=== PATIENT | female | born 1935 | race Caucasian/White ===

== ENCOUNTER 2021-11-21 10:41 | Observation (INO) ==
[2021-11-21] MEDS ORDERED: SODIUM CHLORIDE 0.9% 500 ML IV SCH (11:15)
[2021-11-21 11:21] LABS: Basophils # (auto) 0.01 K/uL (0-0.2); Basophils % (auto) 0.1 %; Hematocrit (blood only) 40.9 % (34.1-44.9); Hemoglobin 13.5 g/dl (12.0-16.0); Immature Granulocytes # (auto) 0.05 K/uL (0.00-0.02); Immature Granulocytes % (auto) 0.4 %; Lymphocytes # (auto) 1.83 K/uL (1.2-3.4); Lymphocytes % (auto) 15.9 %; Mean Corpuscular Hemoglobin 28.4 pg (25.0-34.0); Mean Corpuscular Volume 86.1 fL (80.0-100.0); Mean Platelet Volume 9.1 fL (9.4-12.3); Monocytes # (auto) 0.57 K/uL (0.24-0.82); Neutrophils # (auto) 9.02 K/uL (1.4-6.5); Neutrophils % (auto) 78.6 %; Platelet Count 242 K/uL (130-400); RDW Coefficient of Variation 14.6 % (11.5-14.5); RDW Standard Deviation 45.8 fL (36.4-46.3); Red Blood Count 4.75 M/uL (3.93-5.22); White Blood Count 11.48 K/ul (4.8-10.8)
--- NOTE | 2021-11-21 11:31 | Emergency Department Note ---
Impression & Plan Weakness, Gastroenteritis, Elevated troponin ED Provider Note Provider: Sohan Phillips MD DATE OF SERVICE: 11/21/2021 CHIEF COMPLAINT: Diarrhea, weakness HISTORY OF PRESENT ILLNESS: Patient is a 86-year-old female with a history of GERD, hypertension, hypothyroidism presenting here today with family reporting over the past week she has been feeling little more fatigued. Particulate last night he developed some nausea and had episodes of vomiting yesterday as well as some episodes of nonbloody diarrhea. Denies real abdominal pain. Denies chest pain or shortness of breath. States she is feeling fatigued but not nauseous currently. Family states he seems is not quite herself today. Patient denies numbness or tingling or difficulty with speech. She reports maybe a little bit of a headache at times frontally but not severe. Did not breakfast earlier. REVIEW OF SYSTEMS: A total of 10 review of systems was obtained and negative except as stated above in the HPI. PAST MEDICAL HISTORY: As noted above MEDICATIONS: Reviewed home medication list SOCIAL HISTORY: Lives in apartment by herself, not air conditioned PHYSICAL EXAM: GENERAL: alert and oriented in no acute distress on stretcher Head: normocephalic and atraumatic EYES: No injection, discharge or icterus. PERRL NECK: Trachea midline. Supple. ENT: Mucous membranes pink and moist. Pharynx without erythema or exudate. LUNGS: Airway patent. No retractions. Breath sounds clear with good air entry bilaterally. HEART: Regular rate and rhythm. No chest wall tenderness ABDOMEN: Soft and non-tender, without guarding or rebound. SKIN: Acyanotic, warm, dry, without rashes EXTREMITIES: Without swelling, tenderness or deformity NEUROLOGICAL: No focal deficits. No aphasia. No facial droop or slurred speech. Normal strength and tone in the extremities. Sensation to gross touch normal. Ambulatory minimally unsteady. EK bpm normal sinus rhythm. No PVC or PAC. No acute ST segment elevation or depression with a QTC of 460. CONTINUOUS CARDIAC MONITORING: was ordered and showed a heart rate of 80s-90s bpm in NSR Patient's laboratory studies and imaging reviewed. Differential includes Infection, dehydration, metabolic abnormality, hypo/hyperglycemia, electrolyte disturbance, anemia, hypoxia, cardiac sources, intracerebral event, toxicologic, neurologic, as well as other pathologies. IMPRESSION/MEDICAL DECISION MAKING: Patient without significant focal neurological deficit no significant trauma reported. May be a bit lightheaded earlier but I doubt this represents acute intracranial bleed or CVA. COVID test and basic blood work sent. Note the lack of abdominal tenderness or abdominal pain currently lower suspicion at this time for acute intra-abdominal pathology. Negative COVID test here. But white blood cell count of 11.48. No anemia. Slight hyponatremia of 131. No significant renal dysfunction or evidence of hepatitis or pancreatitis here. Troponin is somewhat elevated at 53. No priors for comparison available here. Urinalysis is sent and pending. No further diarrhea here. Given little additional IV fluid. Discussed with patient, son, [id number], and daughter via phone findings. Patient evidently lives at home by her self of the family is nearby and does not have air conditioning. Family states the patient's memory over the last several months has not been so good and they have been following with her primary doctor regarding this. Discussed with him the findings and while she is on active chest pain with some troponin elevation in the social situation they wish to be observed overnight. Hospitalist contacted. No evidence of UTI. DIAGNOSIS: Diarrhea, weakness, elevated troponin DISPOSITION: Hospitalist will evaluate Patient was agreeable with this plan. Past Med/Surg History Social History Smoking Status: Never smoker Feels Safe at Home: Yes Allergies Allergies Allergy/AdvReac Type Severity Reaction Status Date / Time alendronate sodium Allergy Severe throat Verified 11/21/21 13:12 [From Fosamax] swelling sulfamethoxazole Allergy Mild Rash Verified 11/21/21 13:12 [From Bactrim] trimethoprim [From Bactrim] Allergy Mild Rash Verified 11/21/21 13:12 Home Meds Home Medications Medication Instructions Recorded Confirmed amlodipine 5 mg tablet 5 mg PO DAILY 11/21/21 11/21/21 escitalopram oxalate 10 mg tablet 10 mg PO DAILY 11/21/21 11/21/21 hydrochlorothiazide 25 mg tablet 25 mg PO DAILY 11/21/21 11/21/21 levothyroxine 300 mcg tablet 300 mcg PO DAILY 11/21/21 11/21/21 lisinopril 20 mg tablet 20 mg PO DAILY 11/21/21 11/21/21 multivitamin 1 tab PO DAILY 11/21/21 11/21/21 omeprazole 20 mg tablet,delayed 20 mg PO BID 11/21/21 11/21/21 release simvastatin 20 mg tablet 20 mg PO HS 11/21/21 11/21/21 Results & Data (ED) Vital Signs Vital Signs - 24 hr 11/21/21 10:44 11/21/21 11:02 11/21/21 11:02 Temperature 36.5 C Temperature Source Temporal Artery Scan Pulse Rate 96 H 81 Pulse Rate [Apical] 81 Pulse Rhythm Regular Pulse Strength Normal Respiratory Rate 20 21 21 Respiratory Effort / Characteristics Non-Labored Spontaneous Respiratory Depth Normal Blood Pressure 117/80 Blood Pressure [Right Arm] 145/96 H Blood Pressure Mean 92 Blood Pressure Mean [Right Arm] 112 Blood Pressure Position Sitting Pulse Oximetry 97 98 98 Oxygen Delivery Method Room Air Room Air Room Air Sepsis Recent Fever Within 48 Hours No Sepsis New/Unexplained Change in Mental Status N/A Sepsis Action Taken by Nursing No Action Required 11/21/21 13:00 Temperature Temperature Source Pulse Rate Pulse Rate [Apical] 95 H Pulse Rhythm Pulse Strength Respiratory Rate 21 Respiratory Effort / Characteristics Respiratory Depth Blood Pressure Blood Pressure [Right Arm] 161/81 H Blood Pressure Mean Blood Pressure Mean [Right Arm] 107 Blood Pressure Position Pulse Oximetry 98 Oxygen Delivery Method Room Air Sepsis Recent Fever Within 48 Hours Sepsis New/Unexplained Change in Mental Status Sepsis Action Taken by Nursing Laboratory Data Result diagrams: 11/21/21 11:13 11/21/21 11:13 Lab Results 11/21/21 11/21/21 11/21/21 Range/Units 11:13 11:13 11:13 WBC 11.48 H (4.8-10.8) K/ul RBC 4.75 (3.93-5.22) M/uL Hgb 13.5 (12.0-16.0) g/dl POC Hgb (12.0-16.0) g/dl Hct 40.9 (34.1-44.9) % POC Hct (37-47) % MCV 86.1 (80.0-100.0) fL MCH 28.4 (25.0-34.0) pg MCHC 33.0 (32.0-36.0) g/dL RDW Std Deviation 45.8 (36.4-46.3) fL RDW Coeff of Linda 14.6 H (11.5-14.5) % Plt Count 242 (130-400) K/uL MPV 9.1 L (9.4-12.3) fL Immature Gran % (Auto) 0.4 % Neut % (Auto) 78.6 % Lymph % (Auto) 15.9 % Casey % (Auto) 5.0 % Eos % (Auto) 0.0 % Baso % (Auto) 0.1 % Neut # (Auto) 9.02 H (1.4-6.5) K/uL Lymph # (Auto) 1.83 (1.2-3.4) K/uL Casey # (Auto) 0.57 (0.24-0.82) K/uL Eos # (Auto) 0.00 (0-0.50) K/uL Baso # (Auto) 0.01 (0-0.2) K/uL Immature Gran # (Auto) 0.05 H (0.00-0.02) K/uL POC Sodium (135-144) mmol/L Sodium 131 L (136-145) mmol/L POC Potassium (3.3-5.0) mmol/L Potassium 3.5 (3.5-5.1) mmol/L POC Chloride (101-112) mmol/L Chloride 97 L (98-107) mmol/L Carbon Dioxide 25 (21-32) mmol/L POC Total CO2 (24-31) mmol/L Anion Gap 9 (3-11) POC Anion Gap (16-25) mmol/L POC BUN (7-18) mg/dl BUN 13 (6-23) mg/dl Creatinine 0.78 (0.6-1.2) mg/dl POC Creatinine (0.6-1.3) mg/dl Est Cr Clr Drug Dosing 53.2 ml/min Est GFR ( Amer) 80.9 ml/min Est GFR (Non-Af Amer) 69.8 ml/min BUN/Creatinine Ratio 16.7 (10-20) Glucose 97 (70-99(Fasting)) mg/dl POC Glucose (other) (70-99) mg/dl Calcium 9.5 (8.5-10.1) mg/dl POC Ioniz Calcium Albert (1.12-1.32) mmol/l Magnesium 1.8 (1.7-2.4) mg/dl Total Bilirubin 0.9 (0.2-1.0) mg/dl AST 17 (13-39) U/L ALT 12 (7-52) U/L Alkaline Phosphatase 82 (34-104) U/L Troponin I High Sens 53.7 H* (0-14) pg/ml Total Protein 7.7 (6.0-8.3) gm/dl Albumin 4.3 (3.4-5.0) gm/dl Globulin 3.4 (2.5-4.0) gm/dl Albumin/Globulin Ratio 1.3 (0.9-2) Lipase 11 (11-82) U/L Urine Color Urine Appearance (Clear) Urine pH (4.5-7.5) Ur Specific [place] (1.000-1.030) Urine Protein (Negative) Urine Glucose (UA) (Negative) Urine Ketones (Negative) Urine Blood (Negative) Urine Nitrite (Negative) Urine Bilirubin (Negative) Urine Urobilinogen (Negative) Ur Leukocyte Esterase (Negative) SARS-CoV-2, RNA, NAAT (NEGATIVE) 11/21/21 11/21/21 11/21/21 Range/Units 11:17 12:00 12:44 WBC (4.8-10.8) K/ul RBC (3.93-5.22) M/uL Hgb (12.0-16.0) g/dl POC Hgb 13.6 (12.0-16.0) g/dl Hct (34.1-44.9) % POC Hct 40 (37-47) % MCV (80.0-100.0) fL MCH (25.0-34.0) pg MCHC (32.0-36.0) g/dL RDW Std Deviation (36.4-46.3) fL RDW Coeff of Linda (11.5-14.5) % Plt Count (130-400) K/uL MPV (9.4-12.3) fL Immature Gran % (Auto) % Neut % (Auto) % Lymph % (Auto) % Casey % (Auto) % Eos % (Auto) % Baso % (Auto) % Neut # (Auto) (1.4-6.5) K/uL Lymph # (Auto) (1.2-3.4) K/uL Casey # (Auto) (0.24-0.82) K/uL Eos # (Auto) (0-0.50) K/uL Baso # (Auto) (0-0.2) K/uL Immature Gran # (Auto) (0.00-0.02) K/uL POC Sodium 139 (135-144) mmol/L Sodium (136-145) mmol/L POC Potassium 3.6 (3.3-5.0) mmol/L Potassium (3.5-5.1) mmol/L POC Chloride 104 (101-112) mmol/L Chloride (98-107) mmol/L Carbon Dioxide (21-32) mmol/L POC Total CO2 26 (24-31) mmol/L Anion Gap (3-11) POC Anion Gap 14.0 L (16-25) mmol/L POC BUN 35 H (7-18) mg/dl BUN (6-23) mg/dl Creatinine (0.6-1.2) mg/dl POC Creatinine 1.5 H (0.6-1.3) mg/dl Est Cr Clr Drug Dosing ml/min Est GFR ( Amer) ml/min Est GFR (Non-Af Amer) ml/min BUN/Creatinine Ratio (10-20) Glucose (70-99(Fasting)) mg/dl POC Glucose (other) 162 H (70-99) mg/dl Calcium (8.5-10.1) mg/dl POC Ioniz Calcium Albert 1.15 (1.12-1.32) mmol/l Magnesium (1.7-2.4) mg/dl Total Bilirubin (0.2-1.0) mg/dl AST (13-39) U/L ALT (7-52) U/L Alkaline Phosphatase (34-104) U/L Troponin I High Sens (0-14) pg/ml Total Protein (6.0-8.3) gm/dl Albumin (3.4-5.0) gm/dl Globulin (2.5-4.0) gm/dl Albumin/Globulin Ratio (0.9-2) Lipase (11-82) U/L Urine Color Yellow Urine Appearance Clear (Clear) Urine pH 7.0 (4.5-7.5) Ur Specific [place] 1.001 (1.000-1.030) Urine Protein Negative (Negative) Urine Glucose (UA) Negative (Negative) Urine Ketones Negative (Negative) Urine Blood Negative (Negative) Urine Nitrite Negative (Negative) Urine Bilirubin Negative (Negative) Urine Urobilinogen Negative (Negative) Ur Leukocyte Esterase Negative (Negative) SARS-CoV-2, RNA, NAAT NEGATIVE (NEGATIVE) Administered Medications Discontinued Medications Acetaminophen (Acetaminophen 325 Mg Tab) 650 mg PO NOW STA Stop: 11/21/21 13:00 Last Admin: 11/21/21 13:09 Dose: 650 mg Documented By: TALYA Sodium Chloride (Nss) 500 mls @ 999 mls/hr IV .Q31M ASIYA Stop: 11/21/21 11:45 Last Infusion: 11/21/21 13:47 Dose: 0 mls/hr Documented By: Admin: 11/21/21 11:13 Dose: 999 mls/hr Documented By: TALYA Lactated Ringer's (Lr) 500 mls @ 999 mls/hr IV .Q31M ONE Stop: 11/21/21 13:27 Last Infusion: 11/21/21 13:47 Dose: 0 mls/hr Documented By: Admin: 11/21/21 13:08 Dose: 999 mls/hr Documented By: TALYA Imaging Data Radiologist's Impression: Chest X-Ray 11/21/21 12:06 XR chest 1V portable HISTORY: fatigue COMPARISON: None. FINDINGS: No pneumothorax. No pleural effusions. A 9 mm nodular density within the right lung apex. This could be due to the overlapping first rib. No focal lung consolidations to suggest pneumonia. No evidence for pulmonary edema. The heart is mildly enlarged. There is a tortuous thoracic aorta. Retrocardiac density favors a moderate hiatus hernia. IMPRESSION: 1. No acute process within the chest. 2. Retrocardiac density favors a moderate hiatus hernia. 3. Mild cardiomegaly. 4. Possible 9 mm nodule within the right lung apex versus the overlapping first rib. Follow-up nonemergent chest CT can be performed for confirmation. ACT 112: Positive. There are findings on this exam that require communication between the performing entity and the patient following Patient Test Result Information Act ([place] Act 112) guidelines. Electronically signed by: Gene Quesada M.D. 11/21/2021 12:24 PM Discharge Plan Visit Data Chief Complaint: Diarrhea Stated Complaint: FATIGUE, DIZZY, DIARRHEA ED Provider: Sohan Phillips Discharge Problem: Weakness, Gastroenteritis, Elevated troponin Patient Disposition: Being Evaluated by Hospitalist Prescriptions Prescriptions: No Action multivitamin [Multi-Vitamin] Tablet 1 tab PO DAILY levothyroxine 300 mcg Tablet 300 mcg PO DAILY lisinopril 20 mg Tablet 20 mg PO DAILY amlodipine 5 mg Tablet 5 mg PO DAILY simvastatin 20 mg Tablet 20 mg PO HS hydrochlorothiazide 25 mg Tablet 25 mg PO DAILY escitalopram oxalate 10 mg Tablet 10 mg PO DAILY omeprazole 20 mg Tablet,Delayed Release (Dr/Ec) 20 mg PO BID Referrals Referrals: Lakisha Cherry MD [Primary Care Provider] -
[2021-11-21 11:41] LABS: Albumin Globulin Ratio 1.3 (0.9-2); Albumin Level 4.3 gm/dl (3.4-5.0); BUN Creatinine Ratio 16.7 (10-20); Bilirubin,Total 0.9 mg/dl (0.2-1.0); Calcium 9.5 mg/dl (8.5-10.1); Creatinine Clr Calc Pharmacy 53.2 ml/min; Est GFR (African American) 80.9 ml/min; Est GFR (Non-African American) 69.8 ml/min; Globulin 3.4 gm/dl (2.5-4.0); Potassium 3.5 mmol/L (3.5-5.1); Total Protein 7.7 gm/dl (6.0-8.3)
[2021-11-21 11:49] LABS: Troponin I High Sensitivity 53.7 pg/ml (0-14)
--- NOTE | 2021-11-21 12:25 | XRay Report ---
XR chest 1V portable HISTORY: fatigue COMPARISON: None. FINDINGS: No pneumothorax. No pleural effusions. A 9 mm nodular density within the right lung apex. T his could be due to the overlapping first rib. No focal lung consolidations to suggest pneumonia. No evidence for pulmonary edema. The heart is mildly enlarged. There is a tortuous thoracic aorta. Retro cardiac density favors a moderate hiatus hernia. IMPRESSION: 1. No acute process within the chest. 2. Retrocardiac density favors a moderate hiatus hernia. 3. Mild cardiomegaly. 4. Possible 9 mm nodule within the right lung apex versus the overlapping first rib. Follow-up noneme rgent chest CT can be performed for confirmation. ACT 112: Positive. There are findings on this exam that require communication between the performing entity and the patient following Patient Test Result Information Act ([place] Act 112) guidelines. Electronically signed by: Gene Quesada M.D. 11/21/2021 12:24 PM
[2021-11-21] MEDS ORDERED: LACTATED RINGER'S 500 ML IV ONE (12:57)
[2021-11-21 12:58] LABS: Appearance Urine Clear (Clear); Bilirubin Urine Negative (Negative); Blood Urine Negative (Negative); Color Urine Yellow; Glucose Urine UA Negative (Negative); Ketones Urine Negative (Negative); Leukocyte Esterase Urine Negative (Negative); Nitrite Urine Negative (Negative); Protein Urine Negative (Negative); Specific Gravity Urine 1.001 (1.000-1.030); Urobilinogen Urine Negative (Negative)
[2021-11-21] MEDS ORDERED: ACETAMINOPHEN 325 MG TAB PO STA (12:59)
[2021-11-21] MEDS ORDERED: amLODIPine BESYLATE 5 MG TAB PO ONE (14:33)
[2021-11-21] MEDS ORDERED: lisinopril 20 MG TAB PO STA (14:33)
--- NOTE | 2021-11-21 15:19 | History & Physical Report ---
Date of Service November 21, 2021 Assessment & Plan (1) Nausea, vomiting and diarrhea: (2) Hyponatremia: (3) Elevated troponin: (4) HTN (hypertension): Plan This is an 86-year-old female who has a significant past medical history of HTN, HLD, hypothyroidism, depression, history of benign ovarian tumor who presents to ED secondary to not feeling well over the past 2 days. 86-year-old female who presents due to general ill feeling, headache, nauseousness and few episodes of vomiting and diarrhea. No sick contacts or family members. Patient does not appear to be infectious as UA negative, SARS-CoV-2 negative, afebrile. Possible gastroenteritis at play. Symptoms could also be attributed to hyponatremia as well as heat related illness . Nausea, vomiting and diarrhea Hyponatremia Elevated troponin Admit under observation to telemetry Patient denies caroline chest pain and EKG without ST changes 2-hour troponin relatively unchanged, will cycle every 6 hours x2 for completeness Obtain echocardiogram, A1c and lipid panel, doubt ACS Treat with supportive care IV fluid NS +20 M EQ KCl x1 L, reevaluate in a.m. Obtain serum osm urine sodium and urine osm stool studies for diarrhea Hold HCTZ as possible culprit to hyponatremia HTN Blood pressure elevated in ED, likely secondary to setting and did not take morning medication Will give amlodipine and lisinopril x1 now Hold HCTZ in setting of hyponatremia Monitor Abnormality on CXR 9mm nodule R lung apex vs overlapping first rib recommend non emergent CT as outpt Hypothyroidism Continue levothyroxine, TSH WNL Hyperlipidemia Continue statin Depression Mood stable, continue escitalopram DVT prophylaxis: Lovenox Dispo: Telemetry, possibly d/c tomorrow if feeling better, pt/ot evals and ischemic work up negative Full code PCP: Jo Ann Patient was seen and examined in collaboration with, Dr. Bustillos, please see addendum History of Present Illness Chief Complaint: Ill feeling x2 days. Primary Care Provider: Lakisha Cherry MD This is an 86-year-old female who has a significant past medical history of HTN, HLD, hypothyroidism, depression, history of benign ovarian tumor who presents to ED secondary to not feeling well over the past 2 days. Over the last 1 to 2 days she developed generalized nausea, lightheadedness and yesterday had a 3-4 episodes of small amount of vomiting, headache and 4-5 episodes of loose nonbloody and nonmelanotic stool. She did complain of generalized lower abdominal ache preceding bowel movement which would be resolved with a bowel movement. She lives in an apartment by herself, but family is right around the corner. They provide most of her meals. They ate similar over the last few days and no known sick contacts. She denies any recent fever, chills, sweats, presyncope, dizziness, chest pain, shortness of breath, cough, hemoptysis, URI symptoms, hematemesis, dysuria, increased urgency or frequency with urination for. Despite not feeling well she has been eating adequately. She states that she drinks approximately three 8 ounce glasses of water a day along with a coffee and juice in the morning. She states her apartment is not air- conditioned. She did eat breakfast this morning, but did not take her medications. Due to not feeling well family, who was at bedside, wanted her evaluated. Patient's daughter is an [facility] P[facility], Dr. Yan. Surgical history: Colonoscopy, EGD, bilateral oophorectomy, cataract with lens replacement Social history: Lives alone in an apartment, does not utilize assistive device for walking, non-smoker, nondrinker, Family history: Noncontributory Allergies Allergy/AdvReac Type Severity Reaction Status Date / Time alendronate sodium Allergy Severe throat Verified 11/21/21 13:12 [From Fosamax] swelling sulfamethoxazole Allergy Mild Rash Verified 11/21/21 13:12 [From Bactrim] trimethoprim [From Bactrim] Allergy Mild Rash Verified 11/21/21 13:12 Home Medications Medication Instructions Recorded Confirmed Type amlodipine 5 mg tablet 5 mg PO DAILY 11/21/21 11/21/21 History escitalopram oxalate 10 mg tablet 10 mg PO DAILY 11/21/21 11/21/21 History hydrochlorothiazide 25 mg tablet 25 mg PO DAILY 11/21/21 11/21/21 History levothyroxine 300 mcg tablet 300 mcg PO DAILY 11/21/21 11/21/21 History lisinopril 20 mg tablet 20 mg PO DAILY 11/21/21 11/21/21 History multivitamin 1 tab PO DAILY 11/21/21 11/21/21 History omeprazole 20 mg tablet,delayed 20 mg PO BID 11/21/21 11/21/21 History release simvastatin 20 mg tablet 20 mg PO HS 11/21/21 11/21/21 History Past Med/Surg History Medical History (Updated 11/21/21 @ 15:15 by Lucinda Jackson PA-C) Depression HLD (hyperlipidemia) HTN (hypertension) Hypothyroidism Surgical History (Updated 11/21/21 @ 15:12 by Lucinda Jackson PA-C) History of esophagogastroduodenoscopy (EGD) Hx of bilateral oophorectomy Hx of cataract extraction Hx of colonoscopy Family History (Updated 11/21/21 @ 15:12 by Lucinda Jackson PA-C) Other Family history non-contributory Social History (Updated 11/21/21 @ 15:11 by Lucinda Jackson PA-C) Smoking Status: Never smoker Second Hand Exposure: No; Do You Dip or Chew Tobacco: No; Tobacco Cessation Education Requested by Patient: No Hx Alcohol Use: No Hx Substance Use: No Preferred Language: Micronesian Communication Ability: Effective Manager R D Required: No Beliefs That Will Affect Care: None marital status: / Current Living Situation: Alone Current Living Situation Comment: Lives at home by self Feels Safe at Home: Yes Safety Concerns: Feels Safe At This Time Assistive Devices: None Review of Systems Review of Systems: All systems reviewed & are unremarkable except as noted in HPI & below Physical Exam Physical Exam: Constitutional: WD/WN, vitals as above, NAD, sitting up in bed, pleasant, conversing easily Head: Normocephalic, Atraumatic Eyes: PERRL, conjunctivae normal, anicteric sclerae ENMT: external ear and nose normal, oropharynx normal Neck: trachea midline, no thyromegaly normal visual inspection Respiratory: normal respiratory effort, lungs clear to auscultation, no wheeze, rales, rhonchi. Normal insp/exp effort, no accessory muscle use Cardiovascular: RRR, no murmur, no edema Vessels: no JVD or carotid bruit Chest: normal inspection of chest Abdomen: normal bowel sounds, soft, nontender, no hepatosplenomegaly Musculoskeletal: no cyanosis or clubbing, extremities motor strength 5/5 Skin: no rashes, +SK diffuse anterior/posterior thorax, warm and dry normal turgor Neurologic: PERRL, EOMI, accommodation nl, no face palsy, no dysarthria CN's II-XI intact bilaterally and moves all extremities Psychiatric: A+Ox3, euthymic affect Lymphatic: no cervical or axillary lymphadenopathy : deferred Results & Data Results & Data ([facility]) Vital Signs (Past 12 Hours) Vital Signs Temp Pulse Pulse Resp BP BP Pulse Ox 11/21/21 13:00 95 H 21 161/81 H 98 11/21/21 11:02 81 21 98 11/21/21 11:02 81 21 145/96 H 98 11/21/21 10:44 36.5 C 96 H 20 117/80 97 O2 Del Method 11/21/21 13:00 Room Air 11/21/21 11:02 Room Air 11/21/21 11:02 Room Air 11/21/21 10:44 Room Air Diagnostic Findings Chest X-Ray 11/21/21 12:06 XR chest 1V portable HISTORY: fatigue COMPARISON: None. FINDINGS: No pneumothorax. No pleural effusions. A 9 mm nodular density within the right lung apex. This could be due to the overlapping first rib. No focal lung consolidations to suggest pneumonia. No evidence for pulmonary edema. The heart is mildly enlarged. There is a tortuous thoracic aorta. Retrocardiac density favors a moderate hiatus hernia. IMPRESSION: 1. No acute process within the chest. 2. Retrocardiac density favors a moderate hiatus hernia. 3. Mild cardiomegaly. 4. Possible 9 mm nodule within the right lung apex versus the overlapping first rib. Follow-up nonemergent chest CT can be performed for confirmation. ACT 112: Positive. There are findings on this exam that require communication between the performing entity and the patient following Patient Test Result Information Act ([place] Act 112) guidelines. Electronically signed by: Gene Quesada M.D. 11/21/2021 12:24 PM Medications Administered Medication List Discontinued Medications Acetaminophen (Acetaminophen 325 Mg Tab) 650 mg PO NOW STA Stop: 11/21/21 13:00 Last Admin: 11/21/21 13:09 Dose: 650 mg Documented By: TALYA Amlodipine Besylate (Amlodipine Besylate 5 Mg Tab) 5 mg PO NOW ONE Stop: 11/21/21 14:34 Last Admin: 11/21/21 14:53 Dose: 5 mg Documented By: HNB Sodium Chloride (Nss) 500 mls @ 999 mls/hr IV .Q31M ASIYA Stop: 11/21/21 11:45 Last Infusion: 11/21/21 13:47 Dose: 0 mls/hr Documented By: Admin: 11/21/21 11:13 Dose: 999 mls/hr Documented By: TALYA Lactated Ringer's (Lr) 500 mls @ 999 mls/hr IV .Q31M ONE Stop: 11/21/21 13:27 Last Infusion: 11/21/21 13:47 Dose: 0 mls/hr Documented By: Admin: 11/21/21 13:08 Dose: 999 mls/hr Documented By: TALYA ECG Rate (beats per minute): 83 Rhythm: normal sinus Additional Comments: qtc 460ms COVID-19 Results Results COVID-19 Adm Lab Results: RBC 4.75 M/uL (3.93-5.22) 11/21/21 WBC 11.48 K/ul (4.8-10.8) H 11/21/21 Hgb 13.5 g/dl (12.0-16.0) 11/21/21 Hct 40.9 % (34.1-44.9) 11/21/21 Plt Count 242 K/uL (130-400) 11/21/21 Neutrophils (%) (Auto) 78.6 % 11/21/21 Lymphocytes (%) (Auto) 15.9 % 11/21/21 Monocytes # (Auto) 0.57 K/uL (0.24-0.82) 11/21/21 Eosinophils # (Auto) 0.00 K/uL (0-0.50) 11/21/21 Immature Granulocyte % (Auto) 0.4 % 11/21/21 Neutrophils # (Auto) 9.02 K/uL (1.4-6.5) H 11/21/21 Lymphocytes # (Auto) 1.83 K/uL (1.2-3.4) 11/21/21 Monocytes # (Auto) 0.57 K/uL (0.24-0.82) 11/21/21 Eosinophils # (Auto) 0.00 K/uL (0-0.50) 11/21/21 Basophils # (Auto) 0.01 K/uL (0-0.2) 11/21/21 Immature Granulocyte # (Auto) 0.05 K/uL (0.00-0.02) H 11/21 Na 131 mmol/L (136-145) L 11/21/21 K 3.5 mmol/L (3.5-5.1) 11/21/21 Cl 97 mmol/L (98-107) L 11/21/21 CO2 25 mmol/L (21-32) 11/21/21 Anion Gap 9 (3-11) 11/21/21 BUN 13 mg/dl (6-23) 11/21/21 Creatinine 0.78 mg/dl (0.6-1.2) 11/21/21 BUN/Creatinine Ratio 16.7 (10-20) 11/21/21 Glucose Level 97 mg/dl (70-99(Fasting)) 11/21/21 Ca 9.5 mg/dl (8.5-10.1) 11/21/21 Total Bilirubin 0.9 mg/dl (0.2-1.0) 11/21/21 AST/SGOT 17 U/L (13-39) 11/21/21 ALT/SGPT 12 U/L (7-52) 11/21/21 Alkaline Phosphatase 82 U/L (34-104) 11/21/21 Total Protein 7.7 gm/dl (6.0-8.3) 11/21/21 Albumin 4.3 gm/dl (3.4-5.0) 11/21/21 Globulin 3.4 gm/dl (2.5-4.0) 11/21/21 Albumin/Globulin Ratio 1.3 (0.9-2) 11/21/21 SARS-CoV-2, RNA, NAAT NEGATIVE (NEGATIVE) 11/21/21 Chest X-Ray 11/21/21 Code Status & VTE Plan Code Status FULL CODE Discussed with family at bedside VTE Prophylaxis Plan VTE Prophylaxis will be ordered: Yes Supervising Physician Co-Signing Physician Notes Attending addendum: The patient was seen and examined in emergency room She has been complaining of dizziness associated with abdominal discomfort nausea and vomiting and diarrhea since last night Denies any fever and no chills Denies any chest pain, palpitation or shortness of breath On examination Lying in bed comfortably Hemodynamically stable with blood pressure on the upper side and heart rate around 100 Chestclear to auscultate bilaterally HeartS1-S2, regular Abdomenbenign mildly tender in the lower quadrant Extremitiesnegative for any edema Admission labs, imaging studies reviewed Likely has gastroenteritis with dehydration Intravenously will be administered, electrolyte replaced and the stool will be tested for C. difficile and culture Agree with assessment and plan as outlined above by Lucinda Bustillos
[2021-11-21] MEDS ORDERED: NSS + 20MEQ KCL 20 MEQ/1,000 ML BAG IV SCH (17:07)
[2021-11-21] MEDS ORDERED: ACETAMINOPHEN 325 MG TAB PO PRN (17:07)
[2021-11-21] MEDS ORDERED: POLYETHYLENE (MIRALAX) 17 GM PACK PO PRN (17:07)
[2021-11-21] MEDS ORDERED: ONDANSETRON INJ 2 MG/ML 2 ML VIAL IV PRN (17:07)
[2021-11-21] MEDS ORDERED: ALUMINUM/MAGNESIUM SUSP 30 ML UDC PO PRN (17:07)
[2021-11-21] MEDS ORDERED: MAGNESIUM HYDROXIDE SUSP 30 ML UDC PO PRN (17:07)
[2021-11-21] MEDS: SIMVASTATIN 20 MG TAB PO SCH (21:13)
[2021-11-22 06:09] LABS: Basophils # (auto) 0.01 K/uL (0-0.2); Basophils % (auto) 0.1 %; Eosinophils # (auto) 0.01 K/uL (0-0.50); Eosinophils % (auto) 0.1 %; Hematocrit (blood only) 38.9 % (34.1-44.9); Hemoglobin 12.8 g/dl (12.0-16.0); Immature Granulocytes % (auto) 1.2 %; Lymphocytes # (auto) 1.67 K/uL (1.2-3.4); Lymphocytes % (auto) 20.4 %; Mean Corpuscular Hemoglobin 28.4 pg (25.0-34.0); Mean Corpuscular Hgb Conc 32.9 g/dL (32.0-36.0); Mean Corpuscular Volume 86.4 fL (80.0-100.0); Mean Platelet Volume 8.5 fL (9.4-12.3); Monocytes # (auto) 0.46 K/uL (0.24-0.82); Monocytes % (auto) 5.6 %; Neutrophils # (auto) 5.92 K/uL (1.4-6.5); Neutrophils % (auto) 72.6 %; Platelet Count 206 K/uL (130-400); RDW Coefficient of Variation 14.6 % (11.5-14.5); RDW Standard Deviation 45.9 fL (36.4-46.3); White Blood Count 8.17 K/ul (4.8-10.8)
[2021-11-22 06:36] LABS: Albumin Globulin Ratio 1.3 (0.9-2); Albumin Level 3.9 gm/dl (3.4-5.0); Bilirubin,Total 0.6 mg/dl (0.2-1.0); Calcium 8.9 mg/dl (8.5-10.1); Chol HDL Ratio 3.1 (0-5); Creatinine Clr Calc Pharmacy 72.8 ml/min; Est GFR (African American) 98.7 ml/min; Est GFR (Non-African American) 85.1 ml/min; Globulin 3.1 gm/dl (2.5-4.0); Magnesium 1.8 mg/dl (1.7-2.4); Potassium 3.2 mmol/L (3.5-5.1)
[2021-11-22 06:49] LABS: Estimated Average Glucose 120 mg/dl; Hemoglobin A1C 5.8 % (4.5-5.6)
[2021-11-22] MEDS: LEVOTHYROXINE SODIUM 150 MCG TABLET PO SCH (08:13)
[2021-11-22] MEDS: PANTOprazole 40 MG TAB PO SCH (08:14)
[2021-11-22] MEDS: amLODIPine BESYLATE 5 MG TAB PO SCH (08:14)
[2021-11-22] MEDS: MULTIVITAMIN TAB PO SCH (08:14)
[2021-11-22] MEDS: lisinopril 20 MG TAB PO SCH (08:14)
[2021-11-22] MEDS: ESCITALOPRAM OXALATE 10 MG TAB PO SCH (08:14)
[2021-11-22] MEDS ORDERED: POTASSIUM CHLORIDE PWD 20 MEQ PACK PO ONE (09:31)
--- NOTE | 2021-11-22 09:40 | Hospitalist Progress Note ---
Date of Service November 22, 2021 Assessment & Plan (1) Nausea, vomiting and diarrhea: (2) Hyponatremia: (3) Elevated troponin: (4) HTN (hypertension): Plan This is an 86-year-old female who has a significant past medical history of HTN, HLD, hypothyroidism, depression, history of benign ovarian tumor who presents to ED secondary to not feeling well over the past 2 days. 86-year-old female who presents due to general ill feeling, headache, nauseousness and few episodes of vomiting and diarrhea. No sick contacts or family members. UA negative, SARS-CoV-2 negative, afebrile. Possible gastroenteritis at play. Symptoms could also be attributed to hyponatremia as well as heat related illness . Nausea, vomiting and diarrhea Hyponatremia Elevated troponin Admit under observation to telemetry Patient denies caroline chest pain and EKG without ST changes Troponin slightly elevated and unchanged x4 Obtained echocardiogram Normal LV chamber size with mild concentric LVH. Normal LV systolic function, EF 60 to 65%. No segmental LV wall motion abnormalities are noted. Grade 1 diastolic dysfunction. No significant valvular pathology. A1c 5.5 lipid panel - CH 142, TG 94, LDL 77 Treat with supportive care IVF, replace K Obtain serum osm urine sodium and urine osm stool studies for diarrhea - pending Hold HCTZ as possible culprit to hyponatremia HTN Blood pressure elevated in ED, likely secondary to setting and did not take morning medication cont. amlodipine and lisinopril Hold HCTZ in setting of hyponatremia Monitor Abnormality on CXR 9mm nodule R lung apex vs overlapping first rib recommend non emergent CT as outpt Hypothyroidism Continue levothyroxine, TSH WNL Hyperlipidemia Continue statin Depression Mood stable, continue escitalopram DVT prophylaxis: Lovenox Dispo: Telemetry, possibly d/c tomorrow Full code PCP: Dr. Cherry Admission and Anticipated Discharge Date Admission Date: November 21, 2021 Subjective Patient seen in follow-up of nausea vomiting diarrhea, hyponatremia, elev. troponin Currently sitting up in a chair, in no acute distress She is able to answer questions appropriately, however previously was little confused Family at the bedside Stool sample obtained in the late afternoon Echo obtained Patient denies fevers, chills, chest pain, shortness of breath, she does have some abdominal discomfort Review of Systems Review of Systems: All systems reviewed & are unremarkable except as noted in Subjective Physical Exam Physical Exam: Constitutional: WD/WN, elderly F in NAD Head: NC/AT. Normocephalic, Atraumatic Eyes: PERRL, EOMI, conjunctivae normal, anicteric sclerae ENMT: external ear and nose normal, oropharynx normal Neck: normal visual inspection Respiratory: normal respiratory effort, lungs clear to auscultation, no wheeze, rales, rhonchi. Cardiovascular: RRR, no murmur, no edema Vessels: no JVD or carotid bruit Chest: normal inspection of chest Abdomen: normal bowel sounds, soft, nontender Musculoskeletal: extremities motor strength 5/5 Skin: warm and dry Neurologic: PERRL, EOMI, no face palsy, moves all extremities Psychiatric: A+Ox3, euthymic affect Results & Data Results & Data ([facility]) Vital Signs (Past 12 Hours) Vital Signs Pulse Resp BP Pulse Ox O2 Del Method 11/22/21 08:18 97 H 17 159/84 H 93 Room Air 11/22/21 06:05 94 H 18 178/87 H 97 Room Air 11/22/21 03:08 96 H 17 159/83 H 96 Room Air 11/21/21 23:02 100 H 17 167/98 H 95 Room Air 11/21/21 22:30 99 H 16 151/103 H 95 Room Air Laboratory Results 11/22/21 11/22/21 11/22/21 Range/Units 05:53 05:53 05:53 WBC 8.17 (4.8-10.8) K/ul RBC 4.50 (3.93-5.22) M/uL Hgb 12.8 (12.0-16.0) g/dl POC Hgb (12.0-16.0) g/dl Hct 38.9 (34.1-44.9) % POC Hct (37-47) % MCV 86.4 (80.0-100.0) fL MCH 28.4 (25.0-34.0) pg MCHC 32.9 (32.0-36.0) g/dL RDW Std Deviation 45.9 (36.4-46.3) fL RDW Coeff of Linda 14.6 H (11.5-14.5) % Plt Count 206 (130-400) K/uL MPV 8.5 L (9.4-12.3) fL Immature Gran % (Auto) 1.2 % Neut % (Auto) 72.6 % Lymph % (Auto) 20.4 % Cameron % (Auto) 5.6 % Eos % (Auto) 0.1 % Baso % (Auto) 0.1 % Neut # (Auto) 5.92 (1.4-6.5) K/uL Lymph # (Auto) 1.67 (1.2-3.4) K/uL Cameron # (Auto) 0.46 (0.24-0.82) K/uL Eos # (Auto) 0.01 (0-0.50) K/uL Baso # (Auto) 0.01 (0-0.2) K/uL Immature Gran # (Auto) 0.10 H (0.00-0.02) K/uL POC Sodium (135-144) mmol/L Sodium 134 L (136-145) mmol/L POC Potassium (3.3-5.0) mmol/L Potassium 3.2 L (3.5-5.1) mmol/L POC Chloride (101-112) mmol/L Chloride 101 (98-107) mmol/L Carbon Dioxide 25 (21-32) mmol/L POC Total CO2 (24-31) mmol/L Anion Gap 8 (3-11) POC Anion Gap (16-25) mmol/L POC BUN (7-18) mg/dl BUN 8 (6-23) mg/dl Creatinine 0.57 L (0.6-1.2) mg/dl POC Creatinine (0.6-1.3) mg/dl Est Cr Clr Drug Dosing 72.8 ml/min Est GFR ( Amer) 98.7 ml/min Est GFR (Non-Af Amer) 85.1 ml/min BUN/Creatinine Ratio 14.0 (10-20) Glucose 104 H (70-99(Fasting)) mg/dl POC Glucose (other) (70-99) mg/dl Estimat Average Glucose 120 mg/dl Hemoglobin A1c 5.8 H (4.5-5.6) % Osmolality (280-300) mOsm/kg Calcium 8.9 (8.5-10.1) mg/dl POC Ioniz Calcium Albert (1.12-1.32) mmol/l Magnesium 1.8 (1.7-2.4) mg/dl Total Bilirubin 0.6 (0.2-1.0) mg/dl AST 18 (13-39) U/L ALT 13 (7-52) U/L Alkaline Phosphatase 78 (34-104) U/L Troponin I High Sens (0-14) pg/ml Total Protein 7.0 (6.0-8.3) gm/dl Albumin 3.9 (3.4-5.0) gm/dl Globulin 3.1 (2.5-4.0) gm/dl Albumin/Globulin Ratio 1.3 (0.9-2) Triglycerides 94 (0-150) mg/dl Cholesterol 142 (0-200) mg/dl LDL Cholesterol, Calc 77 mg/dl VLDL Cholesterol, Calc 19 (0-30) mg/dl HDL Cholesterol 46 mg/dl Cholesterol/HDL Ratio 3.1 (0-5) Lipase (11-82) U/L TSH (0.300-4.500) uIu/ml Urine Color Urine Appearance (Clear) Urine pH (4.5-7.5) Ur Specific [place] (1.000-1.030) Urine Protein (Negative) Urine Glucose (UA) (Negative) Urine Ketones (Negative) Urine Blood (Negative) Urine Nitrite (Negative) Urine Bilirubin (Negative) Urine Urobilinogen (Negative) Ur Leukocyte Esterase (Negative) Urine Osmolality (500-800) mOsm/kg Ur Random Sodium mmol/L SARS-CoV-2, RNA, NAAT (NEGATIVE) 11/22/21 11/21/21 11/21/21 Range/Units 00:36 18:29 13:57 WBC (4.8-10.8) K/ul RBC (3.93-5.22) M/uL Hgb (12.0-16.0) g/dl POC Hgb (12.0-16.0) g/dl Hct (34.1-44.9) % POC Hct (37-47) % MCV (80.0-100.0) fL MCH (25.0-34.0) pg MCHC (32.0-36.0) g/dL RDW Std Deviation (36.4-46.3) fL RDW Coeff of Linda (11.5-14.5) % Plt Count (130-400) K/uL MPV (9.4-12.3) fL Immature Gran % (Auto) % Neut % (Auto) % Lymph % (Auto) % Cameron % (Auto) % Eos % (Auto) % Baso % (Auto) % Neut # (Auto) (1.4-6.5) K/uL Lymph # (Auto) (1.2-3.4) K/uL Cameron # (Auto) (0.24-0.82) K/uL Eos # (Auto) (0-0.50) K/uL Baso # (Auto) (0-0.2) K/uL Immature Gran # (Auto) (0.00-0.02) K/uL POC Sodium (135-144) mmol/L Sodium (136-145) mmol/L POC Potassium (3.3-5.0) mmol/L Potassium (3.5-5.1) mmol/L POC Chloride (101-112) mmol/L Chloride (98-107) mmol/L Carbon Dioxide (21-32) mmol/L POC Total CO2 (24-31) mmol/L Anion Gap (3-11) POC Anion Gap (16-25) mmol/L POC BUN (7-18) mg/dl BUN (6-23) mg/dl Creatinine (0.6-1.2) mg/dl POC Creatinine (0.6-1.3) mg/dl Est Cr Clr Drug Dosing ml/min Est GFR ( Amer) ml/min Est GFR (Non-Af Amer) ml/min BUN/Creatinine Ratio (10-20) Glucose (70-99(Fasting)) mg/dl POC Glucose (other) (70-99) mg/dl Estimat Average Glucose mg/dl Hemoglobin A1c (4.5-5.6) % Osmolality 279 L (280-300) mOsm/kg Calcium (8.5-10.1) mg/dl POC Ioniz Calcium Albert (1.12-1.32) mmol/l Magnesium (1.7-2.4) mg/dl Total Bilirubin (0.2-1.0) mg/dl AST (13-39) U/L ALT (7-52) U/L Alkaline Phosphatase (34-104) U/L Troponin I High Sens 55.7 H* 54.0 H* (0-14) pg/ml Total Protein (6.0-8.3) gm/dl Albumin (3.4-5.0) gm/dl Globulin (2.5-4.0) gm/dl Albumin/Globulin Ratio (0.9-2) Triglycerides (0-150) mg/dl Cholesterol (0-200) mg/dl LDL Cholesterol, Calc mg/dl VLDL Cholesterol, Calc (0-30) mg/dl HDL Cholesterol mg/dl Cholesterol/HDL Ratio (0-5) Lipase (11-82) U/L TSH (0.300-4.500) uIu/ml Urine Color Urine Appearance (Clear) Urine pH (4.5-7.5) Ur Specific [place] (1.000-1.030) Urine Protein (Negative) Urine Glucose (UA) (Negative) Urine Ketones (Negative) Urine Blood (Negative) Urine Nitrite (Negative) Urine Bilirubin (Negative) Urine Urobilinogen (Negative) Ur Leukocyte Esterase (Negative) Urine Osmolality (500-800) mOsm/kg Ur Random Sodium mmol/L SARS-CoV-2, RNA, NAAT (NEGATIVE) 11/21/21 11/21/21 11/21/21 Range/Units 13:57 13:57 12:44 WBC (4.8-10.8) K/ul RBC (3.93-5.22) M/uL Hgb (12.0-16.0) g/dl POC Hgb (12.0-16.0) g/dl Hct (34.1-44.9) % POC Hct (37-47) % MCV (80.0-100.0) fL MCH (25.0-34.0) pg MCHC (32.0-36.0) g/dL RDW Std Deviation (36.4-46.3) fL RDW Coeff of Linda (11.5-14.5) % Plt Count (130-400) K/uL MPV (9.4-12.3) fL Immature Gran % (Auto) % Neut % (Auto) % Lymph % (Auto) % Cameron % (Auto) % Eos % (Auto) % Baso % (Auto) % Neut # (Auto) (1.4-6.5) K/uL Lymph # (Auto) (1.2-3.4) K/uL Cameron # (Auto) (0.24-0.82) K/uL Eos # (Auto) (0-0.50) K/uL Baso # (Auto) (0-0.2) K/uL Immature Gran # (Auto) (0.00-0.02) K/uL POC Sodium (135-144) mmol/L Sodium (136-145) mmol/L POC Potassium (3.3-5.0) mmol/L Potassium (3.5-5.1) mmol/L POC Chloride (101-112) mmol/L Chloride (98-107) mmol/L Carbon Dioxide (21-32) mmol/L POC Total CO2 (24-31) mmol/L Anion Gap (3-11) POC Anion Gap (16-25) mmol/L POC BUN (7-18) mg/dl BUN (6-23) mg/dl Creatinine (0.6-1.2) mg/dl POC Creatinine (0.6-1.3) mg/dl Est Cr Clr Drug Dosing ml/min Est GFR ( Amer) ml/min Est GFR (Non-Af Amer) ml/min BUN/Creatinine Ratio (10-20) Glucose (70-99(Fasting)) mg/dl POC Glucose (other) (70-99) mg/dl Estimat Average Glucose mg/dl Hemoglobin A1c (4.5-5.6) % Osmolality (280-300) mOsm/kg Calcium (8.5-10.1) mg/dl POC Ioniz Calcium Albert (1.12-1.32) mmol/l Magnesium (1.7-2.4) mg/dl Total Bilirubin (0.2-1.0) mg/dl AST (13-39) U/L ALT (7-52) U/L Alkaline Phosphatase (34-104) U/L Troponin I High Sens 54.2 H* (0-14) pg/ml Total Protein (6.0-8.3) gm/dl Albumin (3.4-5.0) gm/dl Globulin (2.5-4.0) gm/dl Albumin/Globulin Ratio (0.9-2) Triglycerides (0-150) mg/dl Cholesterol (0-200) mg/dl LDL Cholesterol, Calc mg/dl VLDL Cholesterol, Calc (0-30) mg/dl HDL Cholesterol mg/dl Cholesterol/HDL Ratio (0-5) Lipase (11-82) U/L TSH 2.931 (0.300-4.500) uIu/ml Urine Color Urine Appearance (Clear) Urine pH (4.5-7.5) Ur Specific [place] (1.000-1.030) Urine Protein (Negative) Urine Glucose (UA) (Negative) Urine Ketones (Negative) Urine Blood (Negative) Urine Nitrite (Negative) Urine Bilirubin (Negative) Urine Urobilinogen (Negative) Ur Leukocyte Esterase (Negative) Urine Osmolality (500-800) mOsm/kg Ur Random Sodium < 10 mmol/L SARS-CoV-2, RNA, NAAT (NEGATIVE) 11/21/21 11/21/21 11/21/21 Range/Units 12:44 12:44 12:00 WBC (4.8-10.8) K/ul RBC (3.93-5.22) M/uL Hgb (12.0-16.0) g/dl POC Hgb 13.6 (12.0-16.0) g/dl Hct (34.1-44.9) % POC Hct 40 (37-47) % MCV (80.0-100.0) fL MCH (25.0-34.0) pg MCHC (32.0-36.0) g/dL RDW Std Deviation (36.4-46.3) fL RDW Coeff of Linda (11.5-14.5) % Plt Count (130-400) K/uL MPV (9.4-12.3) fL Immature Gran % (Auto) % Neut % (Auto) % Lymph % (Auto) % Cameron % (Auto) % Eos % (Auto) % Baso % (Auto) % Neut # (Auto) (1.4-6.5) K/uL Lymph # (Auto) (1.2-3.4) K/uL Cameron # (Auto) (0.24-0.82) K/uL Eos # (Auto) (0-0.50) K/uL Baso # (Auto) (0-0.2) K/uL Immature Gran # (Auto) (0.00-0.02) K/uL POC Sodium 139 (135-144) mmol/L Sodium (136-145) mmol/L POC Potassium 3.6 (3.3-5.0) mmol/L Potassium (3.5-5.1) mmol/L POC Chloride 104 (101-112) mmol/L Chloride (98-107) mmol/L Carbon Dioxide (21-32) mmol/L POC Total CO2 26 (24-31) mmol/L Anion Gap (3-11) POC Anion Gap 14.0 L (16-25) mmol/L POC BUN 35 H (7-18) mg/dl BUN (6-23) mg/dl Creatinine (0.6-1.2) mg/dl POC Creatinine 1.5 H (0.6-1.3) mg/dl Est Cr Clr Drug Dosing ml/min Est GFR ( Amer) ml/min Est GFR (Non-Af Amer) ml/min BUN/Creatinine Ratio (10-20) Glucose (70-99(Fasting)) mg/dl POC Glucose (other) 162 H (70-99) mg/dl Estimat Average Glucose mg/dl Hemoglobin A1c (4.5-5.6) % Osmolality (280-300) mOsm/kg Calcium (8.5-10.1) mg/dl POC Ioniz Calcium Albert 1.15 (1.12-1.32) mmol/l Magnesium (1.7-2.4) mg/dl Total Bilirubin (0.2-1.0) mg/dl AST (13-39) U/L ALT (7-52) U/L Alkaline Phosphatase (34-104) U/L Troponin I High Sens (0-14) pg/ml Total Protein (6.0-8.3) gm/dl Albumin (3.4-5.0) gm/dl Globulin (2.5-4.0) gm/dl Albumin/Globulin Ratio (0.9-2) Triglycerides (0-150) mg/dl Cholesterol (0-200) mg/dl LDL Cholesterol, Calc mg/dl VLDL Cholesterol, Calc (0-30) mg/dl HDL Cholesterol mg/dl Cholesterol/HDL Ratio (0-5) Lipase (11-82) U/L TSH (0.300-4.500) uIu/ml Urine Color Yellow Urine Appearance Clear (Clear) Urine pH 7.0 (4.5-7.5) Ur Specific [place] 1.001 (1.000-1.030) Urine Protein Negative (Negative) Urine Glucose (UA) Negative (Negative) Urine Ketones Negative (Negative) Urine Blood Negative (Negative) Urine Nitrite Negative (Negative) Urine Bilirubin Negative (Negative) Urine Urobilinogen Negative (Negative) Ur Leukocyte Esterase Negative (Negative) Urine Osmolality 22 L (500-800) mOsm/kg Ur Random Sodium mmol/L SARS-CoV-2, RNA, NAAT (NEGATIVE) 11/21/21 11/21/21 11/21/21 Range/Units 11:17 11:13 11:13 WBC (4.8-10.8) K/ul RBC (3.93-5.22) M/uL Hgb (12.0-16.0) g/dl POC Hgb (12.0-16.0) g/dl Hct (34.1-44.9) % POC Hct (37-47) % MCV (80.0-100.0) fL MCH (25.0-34.0) pg MCHC (32.0-36.0) g/dL RDW Std Deviation (36.4-46.3) fL RDW Coeff of Linda (11.5-14.5) % Plt Count (130-400) K/uL MPV (9.4-12.3) fL Immature Gran % (Auto) % Neut % (Auto) % Lymph % (Auto) % Cameron % (Auto) % Eos % (Auto) % Baso % (Auto) % Neut # (Auto) (1.4-6.5) K/uL Lymph # (Auto) (1.2-3.4) K/uL Cameron # (Auto) (0.24-0.82) K/uL Eos # (Auto) (0-0.50) K/uL Baso # (Auto) (0-0.2) K/uL Immature Gran # (Auto) (0.00-0.02) K/uL POC Sodium (135-144) mmol/L Sodium 131 L (136-145) mmol/L POC Potassium (3.3-5.0) mmol/L Potassium 3.5 (3.5-5.1) mmol/L POC Chloride (101-112) mmol/L Chloride 97 L (98-107) mmol/L Carbon Dioxide 25 (21-32) mmol/L POC Total CO2 (24-31) mmol/L Anion Gap 9 (3-11) POC Anion Gap (16-25) mmol/L POC BUN (7-18) mg/dl BUN 13 (6-23) mg/dl Creatinine 0.78 (0.6-1.2) mg/dl POC Creatinine (0.6-1.3) mg/dl Est Cr Clr Drug Dosing 53.2 ml/min Est GFR ( Amer) 80.9 ml/min Est GFR (Non-Af Amer) 69.8 ml/min BUN/Creatinine Ratio 16.7 (10-20) Glucose 97 (70-99(Fasting)) mg/dl POC Glucose (other) (70-99) mg/dl Estimat Average Glucose mg/dl Hemoglobin A1c (4.5-5.6) % Osmolality (280-300) mOsm/kg Calcium 9.5 (8.5-10.1) mg/dl POC Ioniz Calcium Albert (1.12-1.32) mmol/l Magnesium 1.8 (1.7-2.4) mg/dl Total Bilirubin 0.9 (0.2-1.0) mg/dl AST 17 (13-39) U/L ALT 12 (7-52) U/L Alkaline Phosphatase 82 (34-104) U/L Troponin I High Sens 53.7 H* (0-14) pg/ml Total Protein 7.7 (6.0-8.3) gm/dl Albumin 4.3 (3.4-5.0) gm/dl Globulin 3.4 (2.5-4.0) gm/dl Albumin/Globulin Ratio 1.3 (0.9-2) Triglycerides (0-150) mg/dl Cholesterol (0-200) mg/dl LDL Cholesterol, Calc mg/dl VLDL Cholesterol, Calc (0-30) mg/dl HDL Cholesterol mg/dl Cholesterol/HDL Ratio (0-5) Lipase 11 (11-82) U/L TSH (0.300-4.500) uIu/ml Urine Color Urine Appearance (Clear) Urine pH (4.5-7.5) Ur Specific [place] (1.000-1.030) Urine Protein (Negative) Urine Glucose (UA) (Negative) Urine Ketones (Negative) Urine Blood (Negative) Urine Nitrite (Negative) Urine Bilirubin (Negative) Urine Urobilinogen (Negative) Ur Leukocyte Esterase (Negative) Urine Osmolality (500-800) mOsm/kg Ur Random Sodium mmol/L SARS-CoV-2, RNA, NAAT NEGATIVE (NEGATIVE) 11/21/21 Range/Units 11:13 WBC 11.48 H (4.8-10.8) K/ul RBC 4.75 (3.93-5.22) M/uL Hgb 13.5 (12.0-16.0) g/dl POC Hgb (12.0-16.0) g/dl Hct 40.9 (34.1-44.9) % POC Hct (37-47) % MCV 86.1 (80.0-100.0) fL MCH 28.4 (25.0-34.0) pg MCHC 33.0 (32.0-36.0) g/dL RDW Std Deviation 45.8 (36.4-46.3) fL RDW Coeff of Linda 14.6 H (11.5-14.5) % Plt Count 242 (130-400) K/uL MPV 9.1 L (9.4-12.3) fL Immature Gran % (Auto) 0.4 % Neut % (Auto) 78.6 % Lymph % (Auto) 15.9 % Cameron % (Auto) 5.0 % Eos % (Auto) 0.0 % Baso % (Auto) 0.1 % Neut # (Auto) 9.02 H (1.4-6.5) K/uL Lymph # (Auto) 1.83 (1.2-3.4) K/uL Cameron # (Auto) 0.57 (0.24-0.82) K/uL Eos # (Auto) 0.00 (0-0.50) K/uL Baso # (Auto) 0.01 (0-0.2) K/uL Immature Gran # (Auto) 0.05 H (0.00-0.02) K/uL POC Sodium (135-144) mmol/L Sodium (136-145) mmol/L POC Potassium (3.3-5.0) mmol/L Potassium (3.5-5.1) mmol/L POC Chloride (101-112) mmol/L Chloride (98-107) mmol/L Carbon Dioxide (21-32) mmol/L POC Total CO2 (24-31) mmol/L Anion Gap (3-11) POC Anion Gap (16-25) mmol/L POC BUN (7-18) mg/dl BUN (6-23) mg/dl Creatinine (0.6-1.2) mg/dl POC Creatinine (0.6-1.3) mg/dl Est Cr Clr Drug Dosing ml/min Est GFR ( Amer) ml/min Est GFR (Non-Af Amer) ml/min BUN/Creatinine Ratio (10-20) Glucose (70-99(Fasting)) mg/dl POC Glucose (other) (70-99) mg/dl Estimat Average Glucose mg/dl Hemoglobin A1c (4.5-5.6) % Osmolality (280-300) mOsm/kg Calcium (8.5-10.1) mg/dl POC Ioniz Calcium Albert (1.12-1.32) mmol/l Magnesium (1.7-2.4) mg/dl Total Bilirubin (0.2-1.0) mg/dl AST (13-39) U/L ALT (7-52) U/L Alkaline Phosphatase (34-104) U/L Troponin I High Sens (0-14) pg/ml Total Protein (6.0-8.3) gm/dl Albumin (3.4-5.0) gm/dl Globulin (2.5-4.0) gm/dl Albumin/Globulin Ratio (0.9-2) Triglycerides (0-150) mg/dl Cholesterol (0-200) mg/dl LDL Cholesterol, Calc mg/dl VLDL Cholesterol, Calc (0-30) mg/dl HDL Cholesterol mg/dl Cholesterol/HDL Ratio (0-5) Lipase (11-82) U/L TSH (0.300-4.500) uIu/ml Urine Color Urine Appearance (Clear) Urine pH (4.5-7.5) Ur Specific [place] (1.000-1.030) Urine Protein (Negative) Urine Glucose (UA) (Negative) Urine Ketones (Negative) Urine Blood (Negative) Urine Nitrite (Negative) Urine Bilirubin (Negative) Urine Urobilinogen (Negative) Ur Leukocyte Esterase (Negative) Urine Osmolality (500-800) mOsm/kg Ur Random Sodium mmol/L SARS-CoV-2, RNA, NAAT (NEGATIVE) Medications Administered Current Inpatient Medications Acetaminophen (Acetaminophen 325 Mg Tab) 650 mg PO Q4H PRN PRN Reason: Pain or Fever Stop: 12/21/21 17:06 Al Hydrox/Mg Hydrox/Simethicone (Aluminum/Magnesium Susp 30 Ml Udc) 15 ml PO Q4H PRN PRN Reason: Dyspepsia Stop: 12/21/21 17:06 Amlodipine Besylate (Amlodipine Besylate 5 Mg Tab) 5 mg PO DAILY [facility] Stop: 12/22/21 08:59 Last Admin: 11/22/21 08:14 Dose: 5 mg Escitalopram Oxalate (Escitalopram Oxalate 10 Mg Tab) 10 mg PO DAILY [facility] Stop: 12/22/21 08:59 Last Admin: 11/22/21 08:14 Dose: 10 mg Levothyroxine Sodium (Levothyroxine Sodium 150 Mcg Tablet) 300 mcg PO DAILYBB [facility] Stop: 12/22/21 08:59 Last Admin: 11/22/21 08:13 Dose: 300 mcg Lisinopril (Lisinopril 20 Mg Tab) 20 mg PO DAILY [facility] Stop: 12/22/21 08:59 Last Admin: 11/22/21 08:14 Dose: 20 mg Magnesium Hydroxide (Magnesium Hydroxide Susp 30 Ml Udc) 30 ml PO Q12H PRN PRN Reason: Constipation Stop: 12/21/21 17:06 Multivitamins (Multivitamin Tab) [facility] Stop: 12/22/21 08:59 Last Admin: 11/22/21 08:14 Dose: 1 tab Ondansetron HCl (Ondansetron Inj 2 Mg/Ml 2 Ml Vial) 4 mg IV Q6H PRN PRN Reason: Nausea Stop: 12/21/21 17:06 Pantoprazole Sodium (Pantoprazole 40 Mg Tab) 40 mg PO QAM [facility]; Protocol Stop: 12/22/21 08:59 Last Admin: 11/22/21 08:14 Dose: 40 mg Polyethylene Glycol (Polyethylene (Miralax) 17 Gm Pack) 17 gm PO DAILY PRN PRN Reason: Constipation Stop: 12/21/21 17:06 Simvastatin (Simvastatin 20 Mg Tab) 20 mg PO HS [facility] Stop: 12/21/21 20:59 Last Admin: 11/21/21 21:13 Dose: 20 mg
--- NOTE | 2021-11-22 14:04 | Electrocardiogram Report ---
Test Reason : Blood Pressure : / mmHG Vent. Rate : 083 BPM Atrial Rate : 083 BPM P-R Int : 192 ms QRS Dur : 074 ms QT Int : 392 ms P-R-T Axes : 045 -22 006 degrees QTc Int : 460 ms Poor data quality, interpretation may be adversely affected Normal sinus rhythm Inferior infarct , age undetermined Cannot rule out Anterior infarct , age undetermined Abnormal ECG No previous ECGs available Confirmed by Jayce Oseguera ([id number]) on 11/22/2021 2:04:36 PM Referred By: REFERRED SELF Confirmed By:Jayce Oseguera
[2021-11-22 18:41] LABS: Adenovirus F 40/41 PCR Not Detected (NotDetected); Astrovirus PCR Not Detected (NotDetected); Clostridium diff Toxin A/B PCR Not Detected (NotDetected); Cryptosporidium PCR Not Detected (NotDetected); Cyclospora cayetanensis PCR Not Detected (NotDetected); Entamoeba histolytica PCR Not Detected (NotDetected); Enteroaggregative E.coli(EAEC) Not Detected (NotDetected); Giardia lamblia PCR Not Detected (NotDetected); Norovirus GI/GII PCR Not Detected (NotDetected); Plesiomonas shigelloides PCR Not Detected (NotDetected); Rotavirus A PCR Not Detected (NotDetected); Salmonella PCR Not Detected (NotDetected); Sapovirus PCR Not Detected (NotDetected); Shiga-like Toxin E.coli (STEC) Not Detected (NotDetected); Shigella/Enteroinvasive E.coli Not Detected (NotDetected); Vibrio cholerae PCR Not Detected (NotDetected); Vibrio species PCR Not Detected (NotDetected); Yersinia enterocolitica PCR Not Detected (NotDetected)
[2021-11-22 18:48] LABS: Campylobacter PCR DETECTED (NotDetected)
[2021-11-22 18:49] LABS: Enteropathogenic E.coli (EPEC) DETECTED (NotDetected); Enterotoxigenic E.coli (ETEC) DETECTED (NotDetected)
[2021-11-22] MEDS ORDERED: AZITHROMYCIN 250 MG TAB PO ONE (19:18)
[2021-11-22] MEDS ORDERED: AZITHROMYCIN 250 MG TAB PO SCH (19:30)
[2021-11-22] MEDS: SIMVASTATIN 20 MG TAB PO SCH (22:21)
[2021-11-22] MEDS: AZITHROMYCIN 250 MG TAB PO SCH (22:21)
[2021-11-23] MEDS: LEVOTHYROXINE SODIUM 150 MCG TABLET PO SCH (06:20)
[2021-11-23] MEDS: PANTOprazole 40 MG TAB PO SCH (07:27)
[2021-11-23] MEDS: amLODIPine BESYLATE 5 MG TAB PO SCH (07:27)
[2021-11-23] MEDS: lisinopril 20 MG TAB PO SCH (07:27)
[2021-11-23] MEDS: ESCITALOPRAM OXALATE 10 MG TAB PO SCH (07:27)
[2021-11-23] MEDS: MULTIVITAMIN TAB PO SCH (07:28)
[2021-11-23] MEDS: AZITHROMYCIN 250 MG TAB PO SCH (08:06)
[2021-11-23 09:45] LABS: Hematocrit (blood only) 41.4 % (34.1-44.9); Hemoglobin 13.6 g/dl (12.0-16.0); Mean Corpuscular Hemoglobin 28.4 pg (25.0-34.0); Mean Corpuscular Hgb Conc 32.9 g/dL (32.0-36.0); Mean Corpuscular Volume 86.4 fL (80.0-100.0); Mean Platelet Volume 9.3 fL (9.4-12.3); Platelet Count 253 K/uL (130-400); RDW Coefficient of Variation 14.6 % (11.5-14.5); RDW Standard Deviation 46.2 fL (36.4-46.3); Red Blood Count 4.79 M/uL (3.93-5.22); White Blood Count 8.68 K/ul (4.8-10.8)
[2021-11-23 10:05] LABS: Calcium 9.9 mg/dl (8.5-10.1); Creatinine Clr Calc Pharmacy 57.1 ml/min; Est GFR (African American) 87.7 ml/min; Est GFR (Non-African American) 75.6 ml/min; Magnesium 1.6 mg/dl (1.7-2.4); Phosphorus 2.5 mg/dl (2.5-4.9); Potassium 3.4 mmol/L (3.5-5.1)
[2021-11-23] MEDS ORDERED: SODIUM CHLORIDE 0.9% 1000ML 500 ML IV ONE (10:29)
[2021-11-23] MEDS ORDERED: MAGNESIUM SULFATE / D5W 1 GM/100 ML BAG IV ONE (10:30)
--- NOTE | 2021-11-23 10:31 | Hospitalist Progress Note ---
Date of Service November 23, 2021 Assessment & Plan (1) Nausea, vomiting and diarrhea: (2) Hyponatremia: (3) Elevated troponin: (4) HTN (hypertension): Plan This is an 86-year-old female who has a significant past medical history of HTN, HLD, hypothyroidism, depression, history of benign ovarian tumor who presents to ED secondary to not feeling well over the past 2 days. 86-year-old female who presents due to general ill feeling, headache, nauseousness and few episodes of vomiting and diarrhea. No sick contacts or family members. UA negative, SARS-CoV-2 negative, afebrile. Possible gastroenteritis at play. Symptoms could also be attributed to hyponatremia as well as heat related illness . Nausea, vomiting and diarrhea Hyponatremia Elevated troponin Admit under observation to telemetry Patient denies caroline chest pain and EKG without ST changes Troponin slightly elevated and unchanged x4 Obtained echocardiogram Normal LV chamber size with mild concentric LVH. Normal LV systolic function, EF 60 to 65%. No segmental LV wall motion abnormalities are noted. Grade 1 diastolic dysfunction. No significant valvular pathology. A1c 5.5 lipid panel - CH 142, TG 94, LDL 77 Treat with supportive care IVF, replace K Obtain serum osm urine sodium and urine osm Hold HCTZ as possible culprit to hyponatremia Stool studies (PCR) for diarrhea obtained - positive for C. jejuni, Enterotoxigenic E. coli, EPEC Started azithromycin 500 mg last night, will continue for total of 3 days HTN Blood pressure elevated in ED, likely secondary to setting and did not take morning medication cont. amlodipine and lisinopril Hold HCTZ in setting of hyponatremia Monitor Abnormality on CXR 9mm nodule R lung apex vs overlapping first rib recommend non emergent CT as outpt Hypothyroidism Continue levothyroxine, TSH WNL Hyperlipidemia Continue statin Depression Mood stable, continue escitalopram DVT prophylaxis: Lovenox Dispo:Plan to [place] home Full code PCP: Dr. Cherry Admission and Anticipated Discharge Date Admission Date: November 22, 2021 Subjective Patient seen in follow-up of nausea vomiting diarrhea, hyponatremia, elev. troponin Currently laying in bed, in no acute distress She is able to answer questions appropriately, however previously was little confused Patient denies fevers, chills, chest pain, shortness of breath She only has minimal abdominal discomfort. Had 1 BM this morning, 2 overnight. Says she is able to walk to the bathroom without any dizziness or lightheadedness Discussed w/ pt's daughter Review of Systems Review of Systems: All systems reviewed & are unremarkable except as noted in Subjective Physical Exam Physical Exam: Constitutional: WD/WN, elderly F in NAD Head: NC/AT. Normocephalic, Atraumatic Eyes: PERRL, EOMI, conjunctivae normal, anicteric sclerae ENMT: external ear and nose normal, oropharynx normal Neck: normal visual inspection Respiratory: normal respiratory effort, lungs clear to auscultation, no wheeze, rales, rhonchi. Cardiovascular: RRR, no murmur, no edema Vessels: no JVD or carotid bruit Chest: normal inspection of chest Abdomen: normal bowel sounds, soft, nontender Musculoskeletal: extremities motor strength 5/5 Skin: warm and dry Neurologic: PERRL, EOMI, no face palsy, moves all extremities Psychiatric: A+Ox3, euthymic affect Results & Data Results & Data ([facility]) Vital Signs (Past 12 Hours) Vital Signs Temp Pulse Pulse Resp BP Pulse Ox O2 Del Method 11/23/21 07:07 89 11/23/21 06:57 37.2 C 86 20 143/76 H 95 Room Air 11/22/21 23:46 36.8 C 86 20 142/68 H 96 Room Air Laboratory Results 11/23/21 11/23/21 11/22/21 Range/Units 09:15 09:15 16:40 WBC 8.68 (4.8-10.8) K/ul RBC 4.79 (3.93-5.22) M/uL Hgb 13.6 (12.0-16.0) g/dl Hct 41.4 (34.1-44.9) % MCV 86.4 (80.0-100.0) fL MCH 28.4 (25.0-34.0) pg MCHC 32.9 (32.0-36.0) g/dL RDW Std Deviation 46.2 (36.4-46.3) fL RDW Coeff of Linda 14.6 H (11.5-14.5) % Plt Count 253 (130-400) K/uL MPV 9.3 L (9.4-12.3) fL Sodium 131 L (136-145) mmol/L Potassium 3.4 L (3.5-5.1) mmol/L Chloride 98 (98-107) mmol/L Carbon Dioxide 24 (21-32) mmol/L Anion Gap 9 (3-11) BUN 8 (6-23) mg/dl Creatinine 0.73 (0.6-1.2) mg/dl Est Cr Clr Drug Dosing 57.1 ml/min Est GFR ( Amer) 87.7 ml/min Est GFR (Non-Af Amer) 75.6 ml/min BUN/Creatinine Ratio 11.0 (10-20) Glucose 87 (70-99(Fasting)) mg/dl Calcium 9.9 (8.5-10.1) mg/dl Phosphorus 2.5 (2.5-4.9) mg/dl Magnesium 1.6 L (1.7-2.4) mg/dl Stl C. cayetanensis PCR Not Detected (NotDetected) Stool Rotavirus A PCR Not Detected (NotDetected) Stl Adenov F 40/41 PCR Not Detected (NotDetected) Stool Astrovirus (PCR) Not Detected (NotDetected) Stool Campylobacter PCR DETECTED A* (NotDetected) Stl C. diff Tox A/B PCR Not Detected (NotDetected) Stool Cryptosporidium PCR Not Detected (NotDetected) Stl E.coli Shiga Tox PCR Not Detected (NotDetected) Stl Enterotoxigenic E PCR DETECTED A* (NotDetected) Stool EPEC (PCR) DETECTED A* (NotDetected) Stool EAEC (PCR) Not Detected (NotDetected) Stl E. histolytica PCR Not Detected (NotDetected) Stool Giardia Lamblia PCR Not Detected (NotDetected) Stool Salmonella PCR Not Detected (NotDetected) Stool Sapovirus (PCR) Not Detected (NotDetected) Stl P. shigelloides PCR Not Detected (NotDetected) Stl Shigella/EIEC PCR Not Detected (NotDetected) St Y.enterocolitica PCR Not Detected (NotDetected) Stool Vibrio (PCR) Not Detected (NotDetected) Stl Vibrio cholerae PCR Not Detected (NotDetected) Stl Norovirus GI/GII PCR Not Detected (NotDetected) Medications Administered Current Inpatient Medications Acetaminophen (Acetaminophen 325 Mg Tab) 650 mg PO Q4H PRN PRN Reason: Pain or Fever Stop: 12/21/21 17:06 Last Admin: 11/22/21 11:13 Dose: 650 mg Al Hydrox/Mg Hydrox/Simethicone (Aluminum/Magnesium Susp 30 Ml Udc) 15 ml PO Q4H PRN PRN Reason: Dyspepsia Stop: 12/21/21 17:06 Amlodipine Besylate (Amlodipine Besylate 5 Mg Tab) 5 mg PO DAILY ASIYA Stop: 12/22/21 08:59 Last Admin: 11/23/21 07:27 Dose: 5 mg Azithromycin (Azithromycin 250 Mg Tab) 500 mg PO QAM ON LICENSE OF [facility]; Protocol Stop: 12/02/21 19:29 Last Admin: 11/23/21 08:06 Dose: 500 mg Escitalopram Oxalate (Escitalopram Oxalate 10 Mg Tab) 10 mg PO DAILY ON LICENSE OF [facility] Stop: 12/22/21 08:59 Last Admin: 11/23/21 07:27 Dose: 10 mg Sodium Chloride (Nss 1000ml) 500 mls @ 80 mls/hr IV .Q6H15M ONE Stop: 11/23/21 16:43 Magnesium Sulfate/Dextrose (Magnesium Sulfate / D5w) 1 gm in 100 mls @ 50 mls/hr IV ONE ONE Stop: 11/23/21 12:29 Levothyroxine Sodium (Levothyroxine Sodium 150 Mcg Tablet) 300 mcg PO DAILYBB ON LICENSE OF [facility] Stop: 12/22/21 08:59 Last Admin: 11/23/21 06:20 Dose: 300 mcg Lisinopril (Lisinopril 20 Mg Tab) 20 mg PO DAILY ASIYA Stop: 12/22/21 08:59 Last Admin: 11/23/21 07:27 Dose: 20 mg Magnesium Hydroxide (Magnesium Hydroxide Susp 30 Ml Udc) 30 ml PO Q12H PRN PRN Reason: Constipation Stop: 12/21/21 17:06 Multivitamins ([facility]ivitamin Tab) [facility] Stop: 12/22/21 08:59 Last Admin: 11/23/21 07:28 Dose: 1 tab Pantoprazole Sodium (Pantoprazole 40 Mg Tab) 40 mg PO QAM ON LICENSE OF [facility]; Protocol Stop: 12/22/21 08:59 Last Admin: 11/23/21 07:27 Dose: 40 mg Polyethylene Glycol (Polyethylene (Miralax) 17 Gm Pack) 17 gm PO DAILY PRN PRN Reason: Constipation Stop: 12/21/21 17:06 Potassium Chloride (Potassium Chloride Pwd 20 Meq Pack) 40 meq PO ONE ONE Stop: 11/23/21 10:30 Simvastatin (Simvastatin 20 Mg Tab) 20 mg PO HS ASIYA Stop: 12/21/21 20:59 Last Admin: 11/22/21 22:21 Dose: 20 mg
[2021-11-23] MEDS ORDERED: POTASSIUM CHLORIDE PWD 20 MEQ PACK PO ONE (10:45)
--- NOTE | 2021-11-23 13:02 | Discharge Summary ---
Date of Service November 23, 2021 Admission HPI Per Admitting Provider This is an 86-year-old female who has a significant past medical history of HTN, HLD, hypothyroidism, depression, history of benign ovarian tumor who presents to ED secondary to not feeling well over the past 2 days. Over the last 1 to 2 days she developed generalized nausea, lightheadedness and yesterday had a 3-4 episodes of small amount of vomiting, headache and 4-5 episodes of loose nonbloody and nonmelanotic stool. She did complain of generalized lower abdominal ache preceding bowel movement which would be resolved with a bowel movement. She lives in an apartment by herself, but family is right around the corner. They provide most of her meals. They ate similar over the last few days and no known sick contacts. She denies any recent fever, chills, sweats, presyncope, dizziness, chest pain, shortness of breath, cough, hemoptysis, URI symptoms, hematemesis, dysuria, increased urgency or frequency with urination for. Despite not feeling well she has been eating adequately. She states that she drinks approximately three 8 ounce glasses of water a day along with a coffee and juice in the morning. She states her apartment is not air- conditioned. She did eat breakfast this morning, but did not take her medications. Due to not feeling well family, who was at bedside, wanted her evaluated. Patient's daughter is an [facility] PCP, Dr. Yan. Surgical history: Colonoscopy, EGD, bilateral oophorectomy, cataract with lens replacement Social history: Lives alone in an apartment, does not utilize assistive device for walking, non-smoker, nondrinker, Family history: Noncontributory Admission Exam Per Admitting Provider Constitutional: WD/WN, vitals as above, NAD, sitting up in bed, pleasant, conversing easily Head: Normocephalic, Atraumatic Eyes: PERRL, conjunctivae normal, anicteric sclerae ENMT: external ear and nose normal, oropharynx normal Neck: trachea midline, no thyromegaly normal visual inspection Respiratory: normal respiratory effort, lungs clear to auscultation, no wheeze, rales, rhonchi. Normal insp/exp effort, no accessory muscle use Cardiovascular: RRR, no murmur, no edema Vessels: no JVD or carotid bruit Chest: normal inspection of chest Abdomen: normal bowel sounds, soft, nontender, no hepatosplenomegaly Musculoskeletal: no cyanosis or clubbing, extremities motor strength 5/5 Skin: no rashes, +SK diffuse anterior/posterior thorax, warm and dry normal turgor Neurologic: PERRL, EOMI, accommodation nl, no face palsy, no dysarthria CN's II-XI intact bilaterally and moves all extremities Psychiatric: A+Ox3, euthymic affect Principal Diagnosis Diarrhea secondary to C. jejuni, E. coli Hyponatremia Discharge Exam Constitutional: WD/WN, elderly F in NAD Head: NC/AT. Normocephalic, Atraumatic Eyes: PERRL, EOMI, conjunctivae normal, anicteric sclerae ENMT: external ear and nose normal, oropharynx normal Neck: normal visual inspection Respiratory: normal respiratory effort, lungs clear to auscultation, no wheeze, rales, rhonchi. Cardiovascular: RRR, no murmur, no edema Vessels: no JVD or carotid bruit Chest: normal inspection of chest Abdomen: normal bowel sounds, soft, nontender Musculoskeletal: extremities motor strength 5/5 Skin: warm and dry Neurologic: PERRL, EOMI, no face palsy, moves all extremities Psychiatric: A+Ox3, euthymic affect Discharge Data Allergies Allergy/AdvReac Type Severity Reaction Status Date / Time alendronate sodium Allergy Severe throat Verified 11/21/21 13:12 [From Fosamax] swelling sulfamethoxazole Allergy Mild Rash Verified 11/21/21 13:12 [From Bactrim] trimethoprim [From Bactrim] Allergy Mild Rash Verified 11/21/21 13:12 Consultations 11/21/21 13:26 ED Decision to Admit Stat Hospital Course (1) Nausea, vomiting and diarrhea: (2) Hyponatremia: (3) Elevated troponin: (4) HTN (hypertension): Plan This is an 86-year-old female who has a significant past medical history of HTN, HLD, hypothyroidism, depression, history of benign ovarian tumor who presents to ED secondary to not feeling well over the past 2 days. 86-year-old female who presents due to general ill feeling, headache, nauseousness and few episodes of vomiting and diarrhea. No sick contacts or family members. UA negative, SARS-CoV-2 negative, afebrile. Possible gastroenteritis at play. Symptoms could also be attributed to hyponatremia as well as heat related illness . Nausea, vomiting and diarrhea Hyponatremia Elevated troponin Admit under observation to telemetry Patient denies caroline chest pain and EKG without ST changes Troponin slightly elevated and unchanged x4 Obtained echocardiogram Normal LV chamber size with mild concentric LVH. Normal LV systolic function, EF 60 to 65%. No segmental LV wall motion abnormalities are noted. Grade 1 diastolic dysfunction. No significant valvular pathology. A1c 5.5 lipid panel - CH 142, TG 94, LDL 77 Treat with supportive care IVF, replace K Obtain serum osm urine sodium and urine osm Hold HCTZ as possible culprit to hyponatremia Stool studies (PCR) for diarrhea obtained - positive for C. jejuni, Enterotoxigenic E. coli, EPEC Started azithromycin 500 mg last night, will continue for total of 3 days HTN Blood pressure elevated in ED, likely secondary to setting and did not take morning medication cont. amlodipine and lisinopril Hold HCTZ in setting of hyponatremia Monitor Abnormality on CXR 9mm nodule R lung apex vs overlapping first rib recommend non emergent CT as outpt Hypothyroidism Continue levothyroxine, TSH WNL Hyperlipidemia Continue statin Depression Mood stable, continue escitalopram DVT prophylaxis: Lovenox Dispo:Plan to [place] home PCP: Dr. Cherry Total Time Total Time Spent Total Time Spent (In Minutes): 40 Discharge Plan Discharge Items Patient Disposition: Home - Self-Care Reason For Visit: HYPONATREMIA, ELEVATED TROP Discharge Diagnosis: Diarrhea secondary to C. jejuni, E. coli Hyponatremia Activity: Per Instructions section Non-emergency contact: Primary Care Provider Call non-emergency contact if: you have any medication questions and your symptoms worsen Follow-up/Referrals: Lakisha Cherry MD [Primary Care Provider] - (Date & Time 11/30/2021 2:20 PM Provider Lakisha Cherry MD Department Family Medicine [facility] ) Diet: Regular and Lactose Intolerant Diet Comment: For now would avoid heavy, fatty foods and dairy Addtl Attending Provider Instructions: Follow-up with your primary care doctor, within 1 to 2 weeks. The appointment was scheduled for you for November 30. Finish antibiotic treatment, take azithromycin 500 mg tomorrow. If your symptoms do not improve in the next few days, see your primary care doctor earlier. Take potassium supplement for next few days. Make sure to stay well-hydrated. For now, do not take hydrochlorothiazide. If you can, monitor your blood pressure at home and record your numbers. Discuss them with your primary care doctor to see if your blood pressure medication needs to be adjusted. Pending Studies at Discharge: No Stand-Alone Forms: [facility], Smoking Cessation Medications and DC Order Prescriptions: New azithromycin 250 mg Tablet 500 mg PO QAM 1 Days Qty: 2 0RF potassium chloride 10 mEq Tablet,Er Particles/Crystals 10 meq PO DAILY Qty: 7 0RF Continued multivitamin [Multi-Vitamin] Tablet 1 tab PO DAILY levothyroxine 300 mcg Tablet 300 mcg PO DAILY lisinopril 20 mg Tablet 20 mg PO DAILY amlodipine 5 mg Tablet 5 mg PO DAILY simvastatin 20 mg Tablet 20 mg PO HS escitalopram oxalate 10 mg Tablet 10 mg PO DAILY omeprazole 20 mg Tablet,Delayed Release (Dr/Ec) 20 mg PO BID Discontinued hydrochlorothiazide 25 mg Tablet 25 mg PO DAILY Discharge Orders: Discharge Order (Routine); Ordered 11/23/21 Ordered By: Artem Mccoy/Other Patient Handouts: A1C Admission Data Admit Date/Time: 11/22/21 19:20 Attending Provider: Artem Acevedo Admit Provider: Carey Bustillos Primary Care Provider: Lakisha Cherry Other Providers: Lucinda Jackson ; Carey Bustillos ; [facility]
[2021-11-24] MEDS ORDERED: POTASSIUM CHLORIDE 10 MEQ TABCR PO SCH (09:00)
== END 2021-11-23 16:10 | disposition home or self-care (01) | DRG 372 ==
LOC: EDINP 10:41 → ED 10:41 → SUATTDRO 13:34 → 2N 17:10

== ENCOUNTER 2025-02-20 14:02 | Inpatient (IN) ==
--- NOTE | 2025-02-20 14:44 | Emergency Department Note ---
Impression & Plan Hypertensive emergency, Elevated troponin, Ptosis of eyelid, left, Headache ED Provider Note Name: MEGAN BYRNES Age: 89 Sex: Female Arrives Via: Ambulance Informant: Patient, EMS, Son, Daughter (Via Phone) ED Provider: Matthew Marley MD Chief Complaint: headache Impression: As per impression above Medical Decision Making: Pleasant 89-year-old female arrives for evaluation of headache ongoing since this morning. This is associated with left eyelid drooping. It also is associated with significant the elevated blood pressure. On arrival patient does not have any complaints other than a mild headache. Examination is consistent with mild left upper facial droop but she has no other neurologic deficits. With the amount of hypertensive she is having she was emergently sent for CTA head which is fortunately unremarkable for acute findings other than there is some questionable carotid artery dilatation. This will need further follow-up and thus a CTA of the head and neck was obtained. Patient's initial EKG is reassuring. Laboratory workup does not show any acute findings other than she does have an elevated troponin. I am a bit worried that this may be a hypertensive emergency. She was given gentle labetalol treatment as wishing to avoid dropping pressure too low especially if there is an underlying stroke ongoing. Patient is not having any chest pain shortness of breath. She has not had any reported syncope. In the setting of stroke versus hypertensive emergency and having an elevated troponin I do feel that starting aspirin is indicated. She does not require heparin at this time as we will await further laboratory findings and workup. Given the patient's unknown last known well and minimal findings especially given the significant difficulty with improving her blood pressure I do not feel she would be a candidate for TNKase. Triage/Nursing Notes reviewed by Me External Chart Review by me: A discharge summary from 01/14/22 was reviewed by me for past medical history Differential: Benign hypertension, hypertensive emergency, cardiovascular pathology, toxicologic, pheochromocytoma, electrolyte abnormality, renal disease, endorgan damage, as well as other pathologies. Vital Signs: reviewed and remarkable for HTN Interventions: labetalol 10mg iv x 3, zofran 4mg iv, tylenol iv Labs:ED labs Reviewed by me and remarkable for elevated trop Imaging:X ray results are stated below per my interpretation: Chest: 1 view: No infiltrate, no effusion, normal cardiac border. CT head: As per my informal interpretation no intracranial hemorrhage or mass effect appreciated. Radiologist notes dilatation of the carotid arteries and advises CTA of the head and neck. EKG:As per my interpretation. Indication hypertension. Sinus at 77 bpm with PVC noted. There is no ischemia appreciated. There is prolonged QTc of 513. Patient does have an intraventricular block noted. When compared to EKG of February 03, 2022 PVCs are new. Cardiac/Tele Monitoring: Cardiac Monitoring: An Order was placed for continuous cardiac monitoring. The monitor shows a rate of 70 with a normal sinus rhythm. Consults:Discussed with hospital service for further management. Plan: Disposition:Hospitalization. Condition: Fair History of Present Illness: 89-year-old female arrives for evaluation of headache. Patient apparently reported to nursing staff this morning that she had a headache. At some point they noticed that she might have a left facial droop as well. Patient states that she has had a headache for several days. No reported falls or injuries. No recent illnesses reported. No interventions prior to arrival. Story is a bit limited as patient does not seem to be a very good historian. Past Medical History:See Below Home Medications:See Below Allergies:bactrim, fosamax Vitals:Blood Pressure: 195/115, Pulse 78, RR 14, T 36.8C, O2 97% on RA Physical Exam: GENERAL: Patient is frail/elderly appearing and in minimal distress. HEAD: AT/NC NECK: No ttp , no stepoff RESPIRATORY: No dyspnea. Clear to auscultation and equal bilaterally. CARDIOVASCULAR: Regular rate and rhythm.No murmur appreciated. GASTROINTESTINAL: Abdomen soft, non-tender, no peritonitis. BACK: No midline tenderness, no CVA tenderness EXTREMITIES: Normal motion all extremities, no cyanosis, no edema. NEUROLOGIC: Patient is alert has dementia and quite forgetful. She has left upper facial weakness though no significantly discernible lower facial weakness. Questionable mild conjunctivitis/erythema on the left. Otherwise no focal neurologic deficits appreciated. Of note patient is not having any difficulty with swallowing or tolerating secretions. SKIN: No rash, no jaundice, no diaphoresis. PSYCH: Appropriate GCS: 15 ED Course: Times/Reassessments: Stable, headache improving Critical Care: I have personally spent 45 minutes of critical care time in the direct management of this patient. Acute hypertensive emergency requiring multiple iv antihypertensives. This was a life/limb threatening event. This 45 minutes is in excess of all separately billable procedures. Matthew Marley MD Past Med/Surg History Problem List (Updated 02/21/25 @ 08:26 by Matthew Marley MD) Headache (Acute) Ptosis of eyelid, left (Acute) Elevated troponin (Acute) Hypertensive emergency (Acute) Aneurysm Facial droop Hypokalemia Stroke-like symptoms Hypertensive urgency Dens fracture with nonunion (Acute) Hyponatremia Nausea, vomiting and diarrhea Hypothyroidism HLD (hyperlipidemia) HTN (hypertension) Weakness (Acute) Gastroenteritis (Acute) Elevated troponin (Acute) Medical History Depression Surgical History Hx of cataract extraction Hx of bilateral oophorectomy Hx of colonoscopy History of esophagogastroduodenoscopy (EGD) Family History Other Family history non-contributory Social History Smoking Status: Never smoker Second Hand Exposure: No; Do You Dip or Chew Tobacco: No; Tobacco Cessation Education Requested by Patient: No Hx Alcohol Use: No Hx Substance Use: No Preferred Language: Hebrew Communication Ability: Effective 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 Beliefs That Will Affect Care: None marital status: Single Current Living Situation: Personal Care Facility Current Living Situation Comment: Lives at home by self Other Information That Helps Us Care for You: No Feels Safe at Home: Yes Safety Concerns: Feels Safe At This Time Assistive Devices: Glasses Assistive Devices Comment: readers Allergies Allergies Allergy/AdvReac Type Severity Reaction Status Date / Time alendronate sodium Allergy Severe throat Verified 02/20/25 17:54 [From Fosamax] swelling sulfamethoxazole Allergy Mild Rash Verified 02/20/25 17:54 [From Bactrim] trimethoprim [From Bactrim] Allergy Mild Rash Verified 02/20/25 17:54 Home Meds Home Medications Medication Instructions Recorded Confirmed amlodipine 5 mg tablet 5 mg PO QAM 11/21/21 02/20/25 escitalopram oxalate 10 mg tablet 10 mg PO QAM 11/21/21 02/20/25 lisinopril 20 mg tablet 20 mg PO QAM 11/21/21 02/20/25 omeprazole 20 mg tablet,delayed 20 mg PO BID 11/21/21 02/20/25 release simvastatin 20 mg tablet 20 mg PO HS 11/21/21 02/20/25 acetaminophen 500 mg tablet 500 mg PO TID 02/20/25 02/20/25 cetirizine 5 mg tablet 5 mg PO QAM 02/20/25 02/20/25 cholecalciferol (vitamin D3) 125 125 mcg PO DAILY 02/20/25 02/20/25 mcg (5,000 unit) capsule donepezil 10 mg tablet 10 mg PO QAM 02/20/25 02/20/25 levothyroxine 200 mcg tablet 200 mcg PO DAILYBB 02/20/25 02/20/25 memantine 10 mg tablet 10 mg PO AMHS 02/20/25 02/20/25 Results & Data (ED) Vital Signs Vital Signs - 24 hr 02/20/25 14:17 02/20/25 14:30 02/20/25 15:44 Temperature 36.8 C Temperature Source Oral Pulse Rate 76 78 Pulse Rate [Right Finger] 77 Respiratory Rate 14 22 Blood Pressure 195/115 H Blood Pressure [Right Arm] 217/109 H Blood Pressure Mean 141 Blood Pressure Mean [Right Arm] 145 Pulse Oximetry 97 95 Oxygen Delivery Method Room Air Room Air Sepsis Recent Fever Within 48 Hours No Sepsis New/Unexplained Change in Mental Status N/A Sepsis Action Taken by Nursing No Action Required 02/20/25 15:46 Temperature Temperature Source Pulse Rate 77 Pulse Rate [Right Finger] Respiratory Rate Blood Pressure 217/109 H Blood Pressure [Right Arm] Blood Pressure Mean Blood Pressure Mean [Right Arm] Pulse Oximetry Oxygen Delivery Method Sepsis Recent Fever Within 48 Hours Sepsis New/Unexplained Change in Mental Status Sepsis Action Taken by Nursing Laboratory Data 02/21/25 04:28 02/21/25 04:28 Lab Results 02/20/25 Range/Units 14:20 WBC 10.33 (4.8-10.8) K/ul RBC 4.77 (4.20-5.40) M/uL Hgb 12.0 (12.0-16.0) g/dl Hct 36.7 L (37.0-47.0) % MCV 76.9 L (80.0-100.0) fL MCH 25.2 (25.0-34.0) pg MCHC 32.7 (32.0-36.0) g/dL RDW Std Deviation 48.0 H (36.4-46.3) fL RDW Coeff of Linda 17.3 H (11.5-14.5) % Plt Count 280 (130-400) K/uL MPV 9.0 L (9.4-12.4) fL Immature Gran % (Auto) 1.4 % Neut % (Auto) 69.1 % Lymph % (Auto) 16.1 % [place] % (Auto) 13.1 % Eos % (Auto) 0.2 % Baso % (Auto) 0.1 % Neut # (Auto) 7.15 H (1.40-6.50) K/uL Lymph # (Auto) 1.66 (1.20-3.40) K/uL [place] # (Auto) 1.35 H (0.11-0.59) K/uL Eos # (Auto) 0.02 (0.00-0.50) K/uL Baso # (Auto) 0.01 (0.00-0.20) K/uL Immature Gran # (Auto) 0.14 (0.01-0.20) K/uL Sodium 133 L (136-145) mmol/L Potassium 2.8 L (3.5-5.1) mmol/L Chloride 93 L (98-107) mmol/L Carbon Dioxide 29 (21-32) mmol/L Anion Gap 11 (3-11) BUN 18 (6-23) mg/dl Creatinine 0.68 (0.6-1.2) mg/dl Est Cr Clr Drug Dosing 56.4 ml/min eGFR 84.24 BUN/Creatinine Ratio 26.5 H (10-20) Glucose 136 H (70-99(Fasting)) mg/dl Calcium 11.0 H (8.6-10.3) mg/dl Magnesium 2.0 (1.7-2.4) mg/dl Total Bilirubin 0.7 (0.2-1.0) mg/dl Direct Bilirubin 0.1 (0-0.2) mg/dl AST 19 (13-39) U/L ALT 11 (7-52) U/L Alkaline Phosphatase 115 H (34-104) U/L Troponin I High Sens 117.2 H* (0-14) pg/ml Total Protein 8.3 (6.0-8.3) gm/dl Albumin 4.5 (3.4-5.0) gm/dl 25-OH Vitamin D Total 24.6 L (30-100) ng/ml TSH 3.998 (0.300-4.500) uIu/ml Lyme Disease Screen Negative (Negative) Administered Medications Acetaminophen (Acetaminophen 325 Mg Tab) 650 mg PO Q4H PRN PRN Reason: Pain or Fever Stop: 03/22/25 18:33 Last Admin: 02/21/25 08:12 Dose: 650 mg Documented By: OO Amlodipine Besylate (Amlodipine Besylate 5 Mg Tab) 5 mg PO [facility] Stop: 03/23/25 08:59 Last Admin: 02/21/25 08:06 Dose: 5 mg Documented By: OO Aspirin (Aspirin 81 Mg Ectab) 81 mg PO [facility] Stop: 03/23/25 08:59 Last Admin: 02/21/25 08:07 Dose: 81 mg Documented By: OO Atorvastatin Calcium (Atorvastatin 40 Mg Tab) 40 mg PO [facility] Stop: 03/22/25 18:49 Last Admin: 02/21/25 08:07 Dose: 40 mg Documented By: Admin: 02/20/25 21:17 Dose: 40 mg Documented By: RASHAUN Cetirizine HCl (Cetirizine Hcl 10 Mg Tablet) 5 mg PO [facility] Stop: 03/23/25 08:59 Last Admin: 02/21/25 08:06 Dose: 5 mg Documented By: OO Donepezil HCl (Donepezil Hcl 10 Mg Tab) 10 mg PO [facility] Stop: 03/23/25 08:59 Last Admin: 02/21/25 08:07 Dose: 10 mg Documented By: OO Hydralazine HCl (Hydralazine Hcl 20 Mg/Ml Vial) 5 mg IV Q4H PRN PRN Reason: SBP>180 Stop: 03/22/25 18:31 Last Admin: 02/21/25 04:10 Dose: 5 mg Documented By: Admin: 02/20/25 23:25 Dose: 5 mg Documented By: Admin: 02/20/25 18:48 Dose: 5 mg Documented By: MITRA Levothyroxine Sodium (Levothyroxine Sodium 200 Mcg Tablet) 200 mcg PO DAILYBB [facility]SI[facility] Stop: 03/23/25 06:29 Last Admin: 02/21/25 05:46 Dose: 200 mcg Documented By: RASHAUN Lisinopril (Lisinopril 20 Mg Tab) 20 mg PO QAM ASIYA Stop: 03/23/25 08:59 Last Admin: 02/21/25 08:06 Dose: 20 mg Documented By: SUNI Memantine (Memantine Hcl 10 Mg Tab) 10 mg PO AMHS ASIYA Stop: 03/22/25 20:59 Last Admin: 02/21/25 08:07 Dose: 10 mg Documented By: OEliu Admin: 02/20/25 21:17 Dose: 10 mg Documented By: RASHAUN Pantoprazole Sodium (Pantoprazole 40 Mg Tab) 40 mg PO BID ASIYA Stop: 03/22/25 20:59 Last Admin: 02/21/25 08:07 Dose: 40 mg Documented By: Admin: 02/20/25 21:17 Dose: 40 mg Documented By: RASHAUN Potassium Chloride (Potassium Chloride Crtab 20 Meq Tabcr) 20 meq PO QA ASIYA Stop: 02/21/25 09:01 Last Admin: 02/21/25 08:08 Dose: 20 meq Documented By: SUNI Discontinued Medications Aspirin (Aspirin 81 Mg Chew) 324 mg PO NOW STA Stop: 02/20/25 16:24 Last Admin: 02/20/25 17:18 Dose: 324 mg Documented By: Clopidogrel Bisulfate (Clopidogrel Bisulfate 75 Mg Tab) 75 mg PO NOW ONE Stop: 02/20/25 18:46 Last Admin: 02/20/25 21:30 Dose: Not Given Documented By: RASHAUN Acetaminophen (Ofirmev) 1,000 mg in 100 mls @ 400 mls/hr IV NOW STA Stop: 02/20/25 14:55 Last Infusion: 02/20/25 15:45 Dose: Infused Documented By: Admin: 02/20/25 14:47 Dose: 400 mls/hr Documented By: MAMI Sodium Chloride (Nss) 500 mls @ 999 mls/hr IV .Q31M ONE Stop: 02/20/25 15:11 Last Infusion: 02/20/25 15:45 Dose: Infused Documented By: Admin: 02/20/25 14:47 Dose: 999 mls/hr Documented By: MAMI Potassium Chloride (K Hieu / Wtr) 10 meq in 100 mls @ 100 mls/hr IV Q1H ASIYA Stop: 02/20/25 18:59 Last Infusion: 02/20/25 20:00 Dose: Infused Documented By: Admin: 02/20/25 18:43 Dose: 100 mls/hr Documented By: Infusion: 02/20/25 18:27 Dose: Infused Documented By: Admin: 02/20/25 17:18 Dose: 100 mls/hr Documented By: MR Ioversol (Optiray 320 125ml) 119 ml IV ONCE ONE Stop: 02/20/25 16:14 Last Admin: 02/20/25 16:14 Dose: 119 ml Documented By: ALEXA Labetalol HCl (Labetalol Hcl Iv 5 Mg/Ml 20ml) 10 mg IV NOW STA Stop: 02/20/25 15:37 Last Admin: 02/20/25 15:46 Dose: 10 mg Documented By: MR Labetalol HCl (Labetalol Hcl Iv 5 Mg/Ml 20ml) 10 mg IV NOW STA Stop: 02/20/25 17:02 Last Admin: 02/20/25 17:18 Dose: 10 mg Documented By: MR Ondansetron HCl (Ondansetron Inj 2 Mg/Ml 2 Ml Vial) 4 mg IV NOW STA Stop: 02/20/25 14:42 Last Admin: 02/20/25 14:47 Dose: 4 mg Documented By: MAMI Potassium Chloride (Potassium Chloride Crtab 20 Meq Tabcr) 40 meq PO NOW STA Stop: 02/20/25 19:00 Last Admin: 02/20/25 21:17 Dose: 40 meq Documented By: RASHAUN Imaging Data Radiologist's Impression: Head CT 02/20/25 14:41 CT head/brain wo con CLINICAL HISTORY: 89 years-old Female with headache. Acute headache TECHNIQUE: Multiple axial CT images of the head were obtained without contrast. A dose lowering technique was utilized adhering to the principles of ALARA. CT DOSE: 547.75 mGy.cm COMPARISON: 10/24/2022, 01/10/2022 FINDINGS: Motion degraded exam. No acute intracranial hemorrhage, midline shift, intracranial mass, hydrocephalus, territorial ischemia or abnormal extra-axial collection. Involutional changes with chronic microvascular ischemic disease redemonstrated. There is fusiform dilation involving the distal carotid arteries bilaterally which has progressed from the prior studies.. The calvarium is intact. Note is made of disconjugate gaze. Prior bilateral lens repair. The paranasal sinuses, mastoid air cells, and middle ear cavities are clear. IMPRESSION: 1. Motion degraded exam without acute intracranial abnormality. 2. 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 These findings could be further characterized with CTA. ACT 112: Negative or not required by law. The above report was generated using voice recognition software. It may contain grammatical, syntax or spelling errors. Electronically signed by: Max Smith M.D. 02/20/2025 3:24 PM Chest X-Ray 02/20/25 14:42 SINGLE VIEW CHEST CLINICAL HISTORY: Strokelike symptoms. FINDINGS: An AP, portable, upright chest radiograph is compared to study dated 02/03/2022. The heart is enlarged noting atherosclerotic calcification of the thoracic aorta. There is prominence of the pulmonary vasculature. Scarring/atelectasis is noted at the lung bases. There is a large hiatal hernia. No pneumothorax is seen. The skeletal structures are osteopenic. The bony thorax is grossly intact. IMPRESSION: 1. Cardiomegaly with prominence of the pulmonary vasculature. Correlate clinically for evidence of fluid overload/congestive change. 2. Hiatal hernia. 3. No airspace consolidation or large pleural effusion is identified. ACT 112: Negative or not required by law. Electronically signed by: Eagle Zapata M.D. 02/20/2025 3:30 PM Discharge Plan Visit Data Chief Complaint: Headache Stated Complaint: possible left eye droop?, dementia ED Provider: Matthew Marlye Discharge Problem: Hypertensive emergency, Elevated troponin, Ptosis of eyelid, left, Headache Patient Disposition: Admitted As Inpatient Condition: Fair Discharge Instructions Interventions: ED Discharge Assessment Last Done: 02/20/25 17:58 Discharge Problem: Headache Qualifiers: Headache type: unspecified Headache chronicity pattern: acute headache I ntractability: not intractable Qualified Code(s): R51.9 - Headache, unspecified
[2025-02-20] MEDS: SODIUM CHLORIDE 0.9% 500 ML IV ONE (14:47)
[2025-02-20] MEDS: ONDANSETRON INJ 2 MG/ML 2 ML VIAL IV STA (14:47)
[2025-02-20] MEDS: ACETAMINOPHEN 1,000 MG/100 ML VIAL IV STA (14:47)
[2025-02-20 14:57] LABS: Hematocrit (blood only) 36.7 % (37.0-47.0); Hemoglobin 12.0 g/dl (12.0-16.0); Immature Granulocytes # (auto) 0.14 K/uL (0.01-0.20); Immature Granulocytes % (auto) 1.4 %; Mean Corpuscular Hemoglobin 25.2 pg (25.0-34.0); Mean Corpuscular Volume 76.9 fL (80.0-100.0); Platelet Count 280 K/uL (130-400); RDW Standard Deviation 48.0 fL (36.4-46.3); Red Blood Count 4.77 M/uL (4.20-5.40); White Blood Count 10.33 K/ul (4.8-10.8)
[2025-02-20 15:10] LABS: Alanine Aminotransferase 11.0 U/L (7-52); Albumin Level 4.5 gm/dl (3.4-5.0); Alkaline Phosphatase 115.0 U/L (34-104); Anion Gap 11.0 (3-11); Bilirubin,Total 0.7 mg/dl (0.2-1.0); Blood Urea Nitrogen 18.0 mg/dl (6-23); Calcium 11.0 mg/dl (8.6-10.3); Carbon Dioxide 29.0 mmol/L (21-32); Chloride 93.0 mmol/L (98-107); Creatinine Clr Calc Pharmacy 56.4 ml/min; Glucose 136.0 mg/dl (70-99(Fasting)); Magnesium 2.0 mg/dl (1.7-2.4); Potassium 2.8 mmol/L (3.5-5.1); Sodium 133.0 mmol/L (136-145); Total Protein 8.3 gm/dl (6.0-8.3)
--- NOTE | 2025-02-20 15:25 | CT Scan Report ---
CT head/brain wo con CLINICAL HISTORY: 89 years-old Female with headache. Acute headache TECHNIQUE: Multiple axial CT images of the head were obtained without contrast. A dose lowering tech nique was utilized adhering to the principles of ALARA. CT DOSE: 547.75 mGy.cm COMPARISON: 10/24/2022, 01/10/2022 FINDINGS: Motion degraded exam. No acute intracranial hemorrhage, midline shift, intracranial mass, h ydrocephalus, territorial ischemia or abnormal extra-axial collection. Involutional changes with entry level manager ildefonso microvascular ischemic disease redemonstrated. There is fusiform dilation involving the distal ca rotid arteries bilaterally which has progressed from the prior studies.. The calvarium is intact. Note is made of disconjugate gaze. Prior bilateral lens repair. The paranasa l sinuses, mastoid air cells, and middle ear cavities are clear. IMPRESSION: 1. Motion degraded exam without acute intracranial abnormality. 2. 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 These findings could be further characterized with CTA. ACT 112: Negative or not required by law. The above report was generated using voice recognition software. It may contain grammatical, syntax o r spelling errors. Electronically signed by: Max Smith M.D. 02/20/2025 3:24 PM
[2025-02-20 15:26] LABS: Thyroid Stimulating Hormone 3.998 uIu/ml (0.300-4.500)
--- NOTE | 2025-02-20 15:31 | XRay Report ---
SINGLE VIEW CHEST CLINICAL HISTORY: Strokelike symptoms. FINDINGS: An AP, portable, upright chest radiograph is compared to study dated 02/03/2022. The heart i s enlarged noting atherosclerotic calcification of the thoracic aorta. There is prominence of the pul monary vasculature. Scarring/atelectasis is noted at the lung bases. There is a large hiatal hernia. No pneumothorax is seen. The skeletal structures are osteopenic. The bony thorax is grossly intact. IMPRESSION: 1. Cardiomegaly with prominence of the pulmonary vasculature. Correlate clinically for evidence of fl uid overload/congestive change. 2. Hiatal hernia. 3. No airspace consolidation or large pleural effusion is identified. ACT 112: Negative or not required by law. Electronically signed by: Eagle Zapata M.D. 02/20/2025 3:30 PM
[2025-02-20] MEDS: LABETALOL HCL IV 5 MG/ML 20ML IV STA ×2 (15:46→17:18)
[2025-02-20 16:11] LABS: Appearance Urine Clear (Clear); Bacteria Urine Automated None Seen (None Seen); Cast Urine Automated 0-2 /lpf (0-2); Epithelial Cell Urine Auto 0-2 /hpf (0-2); Glucose Urine UA Trace (Negative); RBC Urine Automated 0-2 /hpf (0-2); WBC Urine Automated 0-5 /hpf (0-5)
[2025-02-20] MEDS: OPTIRAY 320 125ml IV ONE (16:14)
--- NOTE | 2025-02-20 16:37 | History & Physical Report ---
Date of Service February 20, 2025 Assessment & Plan (1) Hypertensive urgency: (2) Stroke-like symptoms: (3) Elevated troponin: (4) Hypokalemia: Plan Patient is an 89-year-old female with past medical history significant for hypothyroidism, HLD, HTN, GERD, cervical DDD, primary osteoarthritis of both knees, moderate late onset Alzheimer's dementia, depression, history of colonic polyps, history of benign ovarian tumor and anxiety who presented to the ED via EMS from [facility] in [place] for further evaluation of strokelike symptoms including headache, nausea and new left eyelid drooping. HTN urgency vs. emergency Strokelike symptoms Presenting with strokelike symptoms including headache, nausea and new left eyelid drooping. Left-sided ptosis appreciated on exam however patient is able to raise and lower her left eyebrow. Headache and nausea improved at time of our evaluation. Significantly hypertensive upon arrival to ED with readings in the 230s/110s. -BP initially improved to 180s/90s s/p 10mg IV labetalol in ED -BP then rebounded to 210s/100s. Was administered additional 10mg IV labetalol in ED. -BP 159/94 at time of our evaluation shortly before 6PM. Head CT with motion degraded exam but no visible acute intracranial abnormalities. 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 -Did discuss head CT findings with on-call neurologist, Dr. Diaz, via TT regarding BP parameters. -Recommending goal SBP<180 for tonight. -PRN IV hydralazine 5 mg every 4 hours ordered for SBP>180 - nursing communication order placed. -Continue lisinopril 20mg daily, Norvasc 5mg daily tomorrow AM. 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 Neck CTA: Plaque within the carotid bulbs bilaterally, with less than 30% diameter narrowing. Moderate severity stenosis of the distal left vertebral artery, mild stenosis of the distal right vertebral artery. Full stroke workup pending including MRI brain, TTE, Hgb A1c and fasting lipid panel. Appreciate routine PT/OT evals. Again discussed case with Dr. Diaz via TT. Recommended the following: -Plavix 75mg daily x 21 days (can stop Plavix if MRI negative) -Switch simvastatin 20mg daily to 40mg atorvastatin daily for high-intensity therapy -ASA 81mg daily [s/p 324mg ASA load in ED] Elevated troponin Likely demand ischemia secondary to HTN. No reported cardiopulmonary complaints. EKG personally reviewed and appears grossly unchanged compared to prior except for prolonged QTc as outlined below. Follow troponin trend, continue telemetry monitoring. Recently decreased oral intake Likely secondary to recent nausea. Nausea improved as per above. Trial diet as patient passed dysphagia screening in the ED. Appreciate nutrition consult. Hypokalemia Likely secondary to recently decreased oral intake. Repleted via orally and IV in the ED. Continue to monitor and replete PRN. Hypercalcemia Albumin WNL; no correction needed. Check ionized calcium, 25-OH vit D level and intact PTH. Hold vitamin D supplementation for now. Follow calcium trend. Prolonged QTc interval 531ms per EKG today. Avoid QT-prolonging agents as able, repeat EKG in AM. Will hold Lexapro for now. Concurrent use of Lexapro and donepezil with known risk of QTc prolongation. Moderate late onset Alzheimer's dementia Continue donepezil, memantine. Delirium precautions (outlined in communication order). Other chronic medical conditions: HLD - Simvastatin switched to atorvastatin as per above, AM lipid panel pending as per above. GERD - Continue PPI. Hypothyroidism - TSH WNL, continue levothyroxine. Anxiety - Holding Lexapro as per above. DVT Prophylaxis: SCDs/TEDs only for now pending completion of full CVA workup Code Status: FULL CODE PCP: Lakisha Cherry MD Disposition: Admit to PCU Updated the patient's daughter, Rihc, over the phone at [phone]. She is a PCP with [facility], Dr. Rich Yan. Patient seen in collaboration with Dr. Aecvedo. Please see addendum. I spent a total of 84 minutes coordinating, documenting, and providing care for this patient excluding time spent in the performance of separately billed services or time spent by another provider/QHP. This included personally reviewing all current laboratories and imaging studies, medical reconciliation, outpatient chart review and discussion with specialists. This chart was completed in part utilizing Speech Voice Recognition Software. Grammatical errors, random word insertions, pronoun errors, and incomplete sentences are an occasional consequence of this system due to software limitations, ambient noise, and hardware issues. Any formal questions or concerns about the content, text, or information contained within the body of this dictation should be directly addressed to the provider for clarification. History of Present Illness Chief Complaint: Headache, HTN and left eyelid drooping Primary Care Provider: Lakisha Cherry MD Patient is an 89-year-old female with past medical history significant for hypothyroidism, HLD, HTN, GERD, cervical DDD, primary osteoarthritis of both knees, moderate late onset Alzheimer's dementia, depression, history of colonic polyps, history of benign ovarian tumor and anxiety who presented to the ED via EMS from [facility] in [place] for further evaluation of strokelike symptoms including headache, nausea and new left eyelid drooping. History obtained from the patient, multiple family members at bedside, discussion with ED provider and associated chart review. Patient seen at bedside in the ED with Dr. Acevedo. Has been experiencing intermittent headaches and nausea for past 3 or so days. Also with development of new left eyelid droop within the last week per [facility] staff. Reportedly with history of migraines but family mentions she has not had a migraine episode in several years since going through menopause. Has also been experiencing decreased oral intake since beginning of the week with concomitant lethargy per [facility] staff. Has also reportedly been feeling nauseated but no bouts of vomiting. Unclear if patient is having any diarrhea. No prior history of CVA or TIA per chart review. Significantly hypertensive with pressures in the 230s/110s upon arrival to ED. Improved to 159/94 s/p 20mg IV labetalol at the time of our evaluation shortly before 6PM. 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 Head and neck CTA imaging pending. Allergies Allergy/AdvReac Type Severity Reaction Status Date / Time alendronate sodium Allergy Severe throat Verified 02/20/25 17:54 [From Fosamax] swelling sulfamethoxazole Allergy Mild Rash Verified 02/20/25 17:54 [From Bactrim] trimethoprim [From Bactrim] Allergy Mild Rash Verified 02/20/25 17:54 Home Medications Medication Instructions Recorded Confirmed Type amlodipine 5 mg tablet 5 mg PO QAM 11/21/21 02/20/25 History escitalopram oxalate 10 mg tablet 10 mg PO QAM 11/21/21 02/20/25 History lisinopril 20 mg tablet 20 mg PO QAM 11/21/21 02/20/25 History omeprazole 20 mg tablet,delayed 20 mg PO BID 11/21/21 02/20/25 History release simvastatin 20 mg tablet 20 mg PO HS 11/21/21 02/20/25 History acetaminophen 500 mg tablet 500 mg PO TID 02/20/25 02/20/25 History cetirizine 5 mg tablet 5 mg PO QAM 02/20/25 02/20/25 History cholecalciferol (vitamin D3) 125 125 mcg PO DAILY 02/20/25 02/20/25 History mcg (5,000 unit) capsule donepezil 10 mg tablet 10 mg PO QAM 02/20/25 02/20/25 History levothyroxine 200 mcg tablet 200 mcg PO DAILYBB 02/20/25 02/20/25 History memantine 10 mg tablet 10 mg PO AMHS 02/20/25 02/20/25 History Past Med/Surg History Problem List (Updated 02/20/25 @ 19:02 by Magali Albarran PA-C) Hypokalemia Stroke-like symptoms Hypertensive urgency Dens fracture with nonunion (Acute) Hyponatremia Nausea, vomiting and diarrhea Hypothyroidism HLD (hyperlipidemia) HTN (hypertension) Weakness (Acute) Gastroenteritis (Acute) Elevated troponin (Acute) Medical History Depression Surgical History Hx of cataract extraction Hx of bilateral oophorectomy Hx of colonoscopy History of esophagogastroduodenoscopy (EGD) Family History Other Family history non-contributory Social History Smoking Status: Never smoker Second Hand Exposure: No; Do You Dip or Chew Tobacco: No; Tobacco Cessation Education Requested by Patient: No Hx Alcohol Use: No Hx Substance Use: No Preferred Language: Honduran Communication Ability: Effective Inspector Advanced Composite Required: No Beliefs That Will Affect Care: None marital status: Single Current Living Situation: Personal Care Facility Current Living Situation Comment: Lives at home by self Other Information That Helps Us Care for You: No Feels Safe at Home: Yes Safety Concerns: Feels Safe At This Time Assistive Devices: Glasses Assistive Devices Comment: readers Review of Systems Review of Systems: At least ten systems reviewed and negative, except as noted in the HPI. Physical Exam Physical Exam: Please refer to Dr. Acevedo's addendum for physical examination findings. Results & Data Results & Data Vital Signs (Past 12 Hours) Vital Signs Temp Pulse Pulse Resp BP BP Pulse Ox 02/20/25 15:46 77 217/109 H 02/20/25 15:44 77 22 217/109 H 95 02/20/25 14:30 78 02/20/25 14:17 36.8 C 76 14 195/115 H 97 O2 Del Method 02/20/25 15:46 02/20/25 15:44 Room Air 02/20/25 14:30 02/20/25 14:17 Room Air Laboratory Results Short CBC 02/20/25 Range/Units 14:20 WBC 10.33 (4.8-10.8) K/ul Hgb 12.0 (12.0-16.0) g/dl Hct 36.7 L (37.0-47.0) % Plt Count 280 (130-400) K/uL BMP 02/20/25 14:20 Sodium 133 L Potassium 2.8 L Chloride 93 L Carbon Dioxide 29 BUN 18 Creatinine 0.68 Glucose 136 H Calcium 11.0 H Liver Function 02/20/25 Range/Units 14:20 Total Bilirubin 0.7 (0.2-1.0) mg/dl Direct Bilirubin 0.1 (0-0.2) mg/dl AST 19 (13-39) U/L ALT 11 (7-52) U/L Alkaline Phosphatase 115 H (34-104) U/L Albumin 4.5 (3.4-5.0) gm/dl Urine 02/20/25 Range/Units Unknown Urine Color Yellow Urine Appearance Clear (Clear) Urine pH 7.0 (4.5-7.5) Ur Specific [place] 1.013 (1.000-1.030) Urine Protein 3+ H (Negative) Urine Glucose (UA) Trace H (Negative) Diagnostic Findings Head CT 02/20/25 14:41 CT head/brain wo con CLINICAL HISTORY: 89 years-old Female with headache. Acute headache TECHNIQUE: Multiple axial CT images of the head were obtained without contrast. A dose lowering technique was utilized adhering to the principles of ALARA. CT DOSE: 547.75 mGy.cm COMPARISON: 10/24/2022, 01/10/2022 FINDINGS: Motion degraded exam. No acute intracranial hemorrhage, midline shift, intracranial mass, hydrocephalus, territorial ischemia or abnormal extra-axial collection. Involutional changes with chronic microvascular ischemic disease redemonstrated. There is fusiform dilation involving the distal carotid arteries bilaterally which has progressed from the prior studies.. The calvarium is intact. Note is made of disconjugate gaze. Prior bilateral lens repair. The paranasal sinuses, mastoid air cells, and middle ear cavities are clear. IMPRESSION: 1. Motion degraded exam without acute intracranial abnormality. 2. 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 These findings could be further characterized with CTA. ACT 112: Negative or not required by law. The above report was generated using voice recognition software. It may contain grammatical, syntax or spelling errors. Electronically signed by: Max Smith M.D. 02/20/2025 3:24 PM Chest X-Ray 02/20/25 14:42 SINGLE VIEW CHEST CLINICAL HISTORY: Strokelike symptoms. FINDINGS: An AP, portable, upright chest radiograph is compared to study dated 02/03/2022. The heart is enlarged noting atherosclerotic calcification of the thoracic aorta. There is prominence of the pulmonary vasculature. Scarring/atelectasis is noted at the lung bases. There is a large hiatal hernia. No pneumothorax is seen. The skeletal structures are osteopenic. The bony thorax is grossly intact. IMPRESSION: 1. Cardiomegaly with prominence of the pulmonary vasculature. Correlate cli nically for evidence of fluid overload/congestive change. 2. Hiatal hernia. 3. No airspace consolidation or large pleural effusion is identified. ACT 112: Negative or not required by law. Electronically signed by: Eagle Zapata M.D. 02/20/2025 3:30 PM Medications Administered Discontinued Medications Acetaminophen (Ofirmev) 1,000 mg in 100 mls @ 400 mls/hr IV NOW STA Stop: 02/20/25 14:55 Last Infusion: 02/20/25 15:45 Dose: Infused Documented By: Admin: 02/20/25 14:47 Dose: 400 mls/hr Documented By: MAMI Sodium Chloride (Nss) 500 mls @ 999 mls/hr IV .Q31M ONE Stop: 02/20/25 15:11 Last Infusion: 02/20/25 15:45 Dose: Infused Documented By: Admin: 02/20/25 14:47 Dose: 999 mls/hr Documented By: MAMI Ioversol (Optiray 320 125ml) 119 ml IV ONCE ONE Stop: 02/20/25 16:14 Last Admin: 02/20/25 16:14 Dose: 119 ml Documented By: ALEXA Labetalol HCl (Labetalol Hcl Iv 5 Mg/Ml 20ml) 10 mg IV NOW STA Stop: 02/20/25 15:37 Last Admin: 02/20/25 15:46 Dose: 10 mg Documented By: MR Ondansetron HCl (Ondansetron Inj 2 Mg/Ml 2 Ml Vial) 4 mg IV NOW STA Stop: 02/20/25 14:42 Last Admin: 02/20/25 14:47 Dose: 4 mg Documented By: MAMI Supervising Physician Co-Signing Physician Notes Pt seen and examined by me, care coordinated w/ José Albarran PA-C, pls refer to her note above for further detail. Pt is an 89 yo F with hypothyroidism, HLD, HTN, GERD, cervical DDD, primary osteoarthritis of both knees, moderate late onset Alzheimer's dementia, depression, history of colonic polyps, history of benign ovarian tumor and anxiety who presents from [facility] in [place] for further evaluation of strokelike symptoms including headache, nausea and new left eyelid drooping. Has been experiencing intermittent headaches and nausea for past 3 or so days. Also with development of new left eyelid droop within the last week per [facility] staff. Reportedly with history of migraines but family mentions she has not had a migraine episode in several years since going through menopause. Has also been experiencing decreased oral intake since beginning of the week with concomitant lethargy per [facility] staff. Has also reportedly been feeling nauseated but no bouts of vomiting. Found to be significantly hypertensive with pressures in the 230s/110s upon arrival to ED. Received labetalol in ED w/ improvement in BP. Head CT obtained w/ no acute intracranial abnormalities, + aneurysmal dilation involving the distal bilateral internal carotid arteries (has progressed from prior studies). Pt currently sitting up in bed in [facility], surrounding by family and asking if she can be discharged. Reports feeling well right now. Only confirms left eye droopiness that she does not find disturbing. No change in vision. Smile is symmetric, can puff cheeks - symmetric, can raise eyebrows - symmetric. No wea kness in her extremities. lungs clear/ decreased breath sounds, no wheezing. Heart sounds regular. Abdomen soft, nontender. Head and neck CTA obtained and discussed w/ neurology - per neurology - large ICA aneurysmal dilations. patient is likely not an NSG candidate due to age and baseline but pt's daughter (who is also primary care physician) discussed w/ neurologist and is interested in curbside consult to confirm. Pt is a high bleed risk which they were educated on. I (Kristina) asked radiology to push images to [employer] and discussed w/ neurology - ok to discuss with NSG tmrw, so will defer to AM team for now. For now, recommending to hold plavix and cont. w/ ASA. neurology will also cont. to follow up tmrw. MD Kristina
[2025-02-20] MEDS: POTASSIUM CHLORIDE / WTR 10 MEQ/100 ML PLCT IV SCH (17:18)
[2025-02-20] MEDS: ASPIRIN 81 MG CHEW PO STA (17:18)
--- NOTE | 2025-02-20 18:02 | CT Scan Report ---
Clinical history: Stroke symptoms Technique: Axial computed tomography images were obtained of the neck after the administration of intravenous contrast according to the CT angiogram protocol Findings: No stenosis is seen in the common carotid arteries bilaterally. There is plaque within the carotid bulbs bilaterally, with less than 30% diameter narrowing. The remainder of the internal carotid arteries appear patent bilaterally. No stenosis of the external carotid arteries is seen There is a moderate severity stenosis of the distal left vertebral artery. There is a mild stenosis of the distal right vertebral artery. The visualized thoracic aorta appears unremarkable There is multilevel degenerative disc disease and osteoarthritis of the cervical spine. Impression: 1. Atherosclerotic plaque in the carotid bulbs bilaterally, without stenosis 2. 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 Electronically signed by Kristopher Witt 02-20-2025 6:02 PM
--- NOTE | 2025-02-20 18:08 | CT Scan Report ---
Clinical history: Stroke symptoms Technique: Axial computed tomography images were obtained of the brain after the administration of intravenous contrast according to the CT angiogram protocol Findings: There is a suspected 4 mm aneurysm of the M2 segment of the right middle cerebral artery. There is aneurysmal dilatation of the cavernous segments of the distal internal carotid arteries bilaterally, measuring up to 8 mm on the right and 9 mm on the left No definite stenosis is seen of the anterior, middle, or posterior cerebral artery circulations. The basilar artery appears unremarkable There is fluid in the right sphenoid sinus Impression: 1. 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 No definite stenosis of the intracranial arteries 4. Sphenoid sinusitis ACT 112: Positive. There are findings on this exam that require communication between the performing entity and the patient following Patient Test Result Information Act ([place] ACT 112) guidelines. Electronically signed by Kristopher Witt 02-20-2025 6:06 PM
[2025-02-20] MEDS ORDERED: PROMETHAZINE 6.25 MG/50.25 ML BAG IV PRN (18:34)
[2025-02-20] MEDS ORDERED: POLYETHYLENE (MIRALAX) 17 GM PACK PO PRN (18:34)
[2025-02-20] MEDS ORDERED: MAGNESIUM HYDROXIDE SUSP 30 ML UDC PO PRN (18:34)
[2025-02-20] MEDS ORDERED: PHARMACIST DISCHARGE MED REC CONSULT PRN (18:34)
--- NOTE | 2025-02-20 19:45 | Neurology Consultation ---
Date of Consultation February 20, 2025 Assessment & Plan (1) Facial droop: Patient presents with a new left left facial droop. 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 I did discuss with the family these are moderate to high bleed risk. The patient was advised to present immediately to the Emergency Department should she develop severe onset headache, unilateral weakness, numbness, paresthesias, visual deficits, language deficits. - I do not believe patient is a surgical candidate given advanced age and baseline functional status -the patient's daughter, a physician, requests Neurosurgery evaluation which we can accommodate - MRI brain as above I discussed my recommendations with Dr. Artem Acevedo via telephone. Thank you for this consult. Please call with questions. Telehealth Consultation Telehealth Information Telehealth Information: I performed this visit using a real-time telehealth connection between my location and the patients originating location ([facility]). After connecting through interactive tele-video, patient was identified by name and date of and/or wristband check.Patient (or authorized healthcare floor representative) was informed that this was a telemedicine visit and it was being conducted confidentially over secure lines. My office door was closed and no one else was present in the room with me.Patient (or authorized healthcare floor representative) provided consent to proceed with the visit, expressed an understanding of privacy and security of the telemedicine visit, and gave permission to have a hospital floor representative in the room in order to assist with the visit and to conduct portions of the visit, as needed. I informed the patient (or authorized healthcare floor representative) that I reviewed their record and presented the opportunity for them to ask any questions regarding the visit today. The patient agreed to participate. History of Present Illness Reason for Consultation: left facial droop, bilateral ICA aneurysm dilatations, right MCA aneurysm, hypertensive emergency Attending Physician: Artem Acevedo MD History of Present Illness Rose Yan is an 89-year-old female with a past medical history of hypertension, hyperlipidemia, hypothyroidism, GERD, cervical degenerative disc disease, osteoarthritis, Alzheimer's dementia, colonic polyps, benign ovarian tumor, and anxiety who presented to [facility] Emergency Department on 02/20/2025 with headache, found to have blood pressure 230/110. Her daughter, brother, and [id number] are at bedside. Per report, the patient has had a headache for the past week and has not been eating and drinking as normal. She has had nausea but no vomiting or diarrhea. The patient was felt to be dehydrated so her assisted living center recommended she present to the Emergency Department for further evaluation. In the Emergency Department, she was found to have a left facial droop and generalized weakness. Per family at bedside, her face did not have a left facial droop on 02/18/2025. At baseline, the patient has dementia and will repeat herself when talking. She is able to feed herself, dress herself, and toilet independently. She is able to ambulate without a walker. She requires help with bathing and is not able to drive or do her own finances. No recent sick contacts or medication changes per report. CT head in the Emergency Department showed diffuse atrophy consistent with her history of dementia. CT angiogram head and neck reveals massive bilateral ICA dilations in the supraclinoid region 17 mm on the right and 15 mm on the left. Her physical exam is notable for disorientation to month and year, left facial droop, gaze palsy, right lower extremity ataxia, and not completely fluent with description of the stroke picture. I did review the images with her family at bedside. Daughter, a PCP, is requesting Neurosurgery review of the images which I think is reasonable. I do not believe the patient is a neurosurgical ca ndidate given her advanced age and baseline functional status. I did advise that the patient is a moderate to high bleed risk with these large aneurysmal dilations and the patient should present immediately to the Emergency Department should she develop severe headache or acute neurologic symptoms such as unilateral weakness, numbness, paresthesias, dizziness, vision changes, speech deficits. Per report, the patient does not take antiplatelets or anticoagulation at home. Allergies Allergy/AdvReac Type Severity Reaction Status Date / Time alendronate sodium Allergy Severe throat Verified 02/20/25 17:54 [From Fosamax] swelling sulfamethoxazole Allergy Mild Rash Verified 02/20/25 17:54 [From Bactrim] trimethoprim [From Bactrim] Allergy Mild Rash Verified 02/20/25 17:54 Home Medications Medication Instructions Recorded Confirmed Type amlodipine 5 mg tablet 5 mg PO QAM 11/21/21 02/20/25 History escitalopram oxalate 10 mg tablet 10 mg PO QAM 11/21/21 02/20/25 History lisinopril 20 mg tablet 20 mg PO QAM 11/21/21 02/20/25 History omeprazole 20 mg tablet,delayed 20 mg PO BID 11/21/21 02/20/25 History release simvastatin 20 mg tablet 20 mg PO HS 11/21/21 02/20/25 History acetaminophen 500 mg tablet 500 mg PO TID 02/20/25 02/20/25 History cetirizine 5 mg tablet 5 mg PO QAM 02/20/25 02/20/25 History cholecalciferol (vitamin D3) 125 125 mcg PO DAILY 02/20/25 02/20/25 History mcg (5,000 unit) capsule donepezil 10 mg tablet 10 mg PO QAM 02/20/25 02/20/25 History levothyroxine 200 mcg tablet 200 mcg PO DAILYBB 02/20/25 02/20/25 History memantine 10 mg tablet 10 mg PO AMHS 02/20/25 02/20/25 History Patient History Medical History Depression Surgical History Hx of cataract extraction Hx of bilateral oophorectomy Hx of colonoscopy History of esophagogastroduodenoscopy (EGD) Family History Other Family history non-contributory Social History Smoking Status: Never smoker Second Hand Exposure: No; Do You Dip or Chew Tobacco: No; Tobacco Cessation Education Requested by Patient: No Hx Alcohol Use: No Hx Substance Use: No Preferred Language: Japanese Communication Ability: Effective Admitting Interviewer Required: No Beliefs That Will Affect Care: None marital status: Single Current Living Situation: Personal Care Facility Current Living Situation Comment: Lives at home by self Other Information That Helps Us Care for You: No Feels Safe at Home: Yes Safety Concerns: Feels Safe At This Time Assistive Devices: Glasses Assistive Devices Comment: readers Review of Systems ROS reviewed and negative except as above Physical Exam General Constitutional: Appearance normally developed Head and face: normocephalic and atraumatic Eyes: left eye ptosis, no anisocoria, and no dysconjugate gaze Respiratory: normal effort Cardiovascular: regular rhythm and regular rate Abdomen: non distended Skin: no rashes, lesions, or ulcers noted Psychiatric: normal judgement and insight, normal mood, and normal affect NEUROLOGIC EXAMINATION: Mental Status: alert, oriented to person and state, but not month or year, poor recent memory, poor remote memory, normal attention span, hard of hearing, poor concentration, nonfluent description of the stroke picture, decreased fund of knowledge. Able to name, read, and repeat Cranial Nerves: CN 2 - per report, pupils round, equal, reactive to light CN 3, 4, 6 - bidirectional end gaze palsy CN 5 - facial sensation intact CN 7 - left facial droop CN 8 - intact hearing CN 9, 10 - not assessed CN 11 - good shoulder shrug CN 12 - not assessed MOTOR: Strength was at least antigravity throughout, Pronator drift was absent and There were no abnormal movements SENSATION: intact and symmetric to light touch GAIT: not assessed COORDINATION: no ataxia with finger to nose testing and heel to del angel testing REFLEXES: cannot assess over telemedicine NIH Stroke Scale: 1a. Level of Consciousness: alert = 0 1b. LOC Questions: (month, age): answered one question incorrect = 1 1c. LOC Commands (open and close eyes, make fist and let go using non-paretic hand): obeys both correctly = 0 2. Best Gaze (eyes open and patient follows examiner's finger or face): bidirectional end gaze palsy = 1 3. Visual (visual threat or finger counting in each quadrant): no loss = 0 4. Facial Palsy (show teeth, raise eye brows and squeeze eyes shut, or grimace symmetry in a comatose patient): left facial droop = 1 5a. Motor Arm (extend arm (palms down) to 90 degrees and score drift/movement (10 seconds) - Left: no drift = 0 5b. Motor Arm: (extend arm (palms down) to 90 degrees and score drift/movement (10 seconds) - Right: no drift = 0 6a. Motor Leg (elevate leg 30 degrees and score drift/ movement (5 seconds) - Left: no drift = 0 6b. Motor Leg (elevate leg 30 degrees and score drift/ movement (5 seconds) - Right: no drift = 0 7. Limb Ataxia (finger to nose, heel down del angel): absent = 0 8. Sensory (pin prick to face, arm, trunk and leg, compare side to side): normal = 0 9. Best Language: mild aphasia = 1 10. Dysarthria (evaluate speech clarity by patient repeating listed words): mild dysarthria = 1 11. Extinction and Inattention: no neglect = 0 Total: 5 Results & Data Vital Signs (Past 12 Hours) Vital Signs Temp Pulse Pulse Resp BP BP Pulse Ox 02/20/25 19:25 66 02/20/25 18:15 36.6 C 61 16 189/95 H 97 02/20/25 18:00 63 191/108 H 02/20/25 17:30 61 165/73 H 02/20/25 17:18 66 184/98 H 02/20/25 17:17 66 20 184/98 H 95 02/20/25 15:46 77 217/109 H 02/20/25 15:44 77 22 217/109 H 95 02/20/25 14:30 78 02/20/25 14:17 36.8 C 76 14 195/115 H 97 O2 Del Method 02/20/25 19:25 02/20/25 18:15 Room Air 02/20/25 18:00 02/20/25 17:30 02/20/25 17:18 02/20/25 17:17 Room Air 02/20/25 15:46 02/20/25 15:44 Room Air 02/20/25 14:30 02/20/25 14:17 Room Air Laboratory Results 02/20/25 02/20/25 02/20/25 Unknown 19:11 17:30 WBC RBC Hgb Hct MCV MCH MCHC RDW Std Deviation RDW Coeff of Linda Plt Count MPV Immature Gran % (Auto) Neut % (Auto) Lymph % (Auto) [place] % (Auto) Eos % (Auto) Baso % (Auto) Neut # (Auto) Lymph # (Auto) [place] # (Auto) Eos # (Auto) Baso # (Auto) Immature Gran # (Auto) Sodium Potassium Chloride Carbon Dioxide Anion Gap BUN Creatinine Est Cr Clr Drug Dosing eGFR BUN/Creatinine Ratio Glucose Calcium Ionized Calcium 1.22 Magnesium Total Bilirubin Direct Bilirubin AST ALT Alkaline Phosphatase Troponin I High Sens 118.8 H* Total Protein Albumin 25-OH Vitamin D Total TSH PTH Intact 120.1 H Urine Color Yellow Urine Appearance Clear Urine pH 7.0 Ur Specific [place] 1.013 Urine Protein 3+ H Urine Glucose (UA) Trace H Urine Ketones Negative Urine Blood Negative Urine Nitrite Negative Urine Bilirubin Negative Urine Urobilinogen Negative Ur Leukocyte Esterase Negative Urine WBC (Auto) 0-5 Urine RBC (Auto) 0-2 U Hyaline Cast (Auto) 0-2 U Epithel Cells (Auto) 0-2 Urine Bacteria (Auto) None Seen Urine Comment Lyme Disease Screen 02/20/25 14:20 WBC 10.33 RBC 4.77 Hgb 12.0 Hct 36.7 L MCV 76.9 L MCH 25.2 MCHC 32.7 RDW Std Deviation 48.0 H RDW Coeff of Linda 17.3 H Plt Count 280 MPV 9.0 L Immature Gran % (Auto) 1.4 Neut % (Auto) 69.1 Lymph % (Auto) 16.1 [place] % (Auto) 13.1 Eos % (Auto) 0.2 Baso % (Auto) 0.1 Neut # (Auto) 7.15 H Lymph # (Auto) 1.66 [place] # (Auto) 1.35 H Eos # (Auto) 0.02 Baso # (Auto) 0.01 Immature Gran # (Auto) 0.14 Sodium 133 L Potassium 2.8 L Chloride 93 L Carbon Dioxide 29 Anion Gap 11 BUN 18 Creatinine 0.68 Est Cr Clr Drug Dosing 56.4 eGFR 84.24 BUN/Creatinine Ratio 26.5 H Glucose 136 H Calcium 11.0 H Ionized Calcium Magnesium 2.0 Total Bilirubin 0.7 Direct Bilirubin 0.1 AST 19 ALT 11 Alkaline Phosphatase 115 H Troponin I High Sens 117.2 H* Total Protein 8.3 Albumin 4.5 25-OH Vitamin D Total 24.6 L TSH 3.998 PTH Intact Urine Color Urine Appearance Urine pH Ur Specific [place] Urine Protein Urine Glucose (UA) Urine Ketones Urine Blood Urine Nitrite Urine Bilirubin Urine Urobilinogen Ur Leukocyte Esterase Urine WBC (Auto) Urine RBC (Auto) U Hyaline Cast (Auto) U Epithel Cells (Auto) Urine Bacteria (Auto) Urine Comment Lyme Disease Screen Negative Diagnostic Findings Head CT 02/20/25 14:41 IMPRESSION: 1. Motion degraded exam without acute intracranial abnormality. 2. 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 These findings could be further characterized with CTA. Electronically signed by: Max Smith M.D. 02/20/2025 3:24 PM Head CTA 02/20/25 15:34 Impression: 1. 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 No definite stenosis of the intracranial arteries 4. Sphenoid sinusitis Electronically signed by Kristopher Witt 02-20-2025 6:06 PM Neck CTA 02/20/25 15:34 Impression: 1. Atherosclerotic plaque in the carotid bulbs bilaterally, without stenosis 2. 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 Electronically signed by Kristopher Witt 02-20-2025 6:02 PM Medications Administered Home Medications Medication Instructions Recorded Confirmed Last Taken amlodipine 5 mg tablet 5 mg PO QAM 11/21/21 02/20/25 01/09/22 escitalopram oxalate 10 mg tablet 10 mg PO QAM 11/21/21 02/20/25 01/10/22 lisinopril 20 mg tablet 20 mg PO QAM 11/21/21 02/20/25 01/10/22 omeprazole 20 mg tablet,delayed 20 mg PO BID 11/21/21 02/20/25 01/10/22 release simvastatin 20 mg tablet 20 mg PO HS 11/21/21 02/20/25 01/09/22 acetaminophen 500 mg tablet 500 mg PO TID 02/20/25 02/20/25 Unknown cetirizine 5 mg tablet 5 mg PO QAM 02/20/25 02/20/25 Unknown cholecalciferol (vitamin D3) 125 125 mcg PO DAILY 02/20/25 02/20/25 Unknown mcg (5,000 unit) capsule donepezil 10 mg tablet 10 mg PO QAM 02/20/25 02/20/25 Unknown levothyroxine 200 mcg tablet 200 mcg PO DAILYBB 02/20/25 02/20/25 Unknown memantine 10 mg tablet 10 mg PO AMHS 02/20/25 02/20/25 Unknown Active Medications Generic Name Dose Route Start Last Admin Trade Name Freq PRN Reason Stop Dose Admin Hydralazine HCl 5 mg 02/20/25 18:32 02/20/25 18:48 Hydralazine Hcl 20 Mg/Ml Vial IV 03/22/25 18:31 5 mg Q4H PRN Administration SBP>180
[2025-02-20] MEDS ORDERED: SIMVASTATIN 20 MG TAB PO SCH (21:00)
[2025-02-20] MEDS: ATORVASTATIN 40 MG TAB PO SCH (21:17)
[2025-02-20] MEDS: MEMANTINE HCL 10 MG TAB PO SCH (21:17)
[2025-02-20] MEDS: POTASSIUM CHLORIDE CRTAB 20 MEQ TABCR PO STA (21:17)
[2025-02-20] MEDS: CLOPIDOGREL BISULFATE 75 MG TAB PO ONE (21:30)
[2025-02-21 04:37] LABS: Hematocrit (blood only) 37.4 % (37.0-47.0); Hemoglobin 11.4 g/dl (12.0-16.0); Mean Corpuscular Hemoglobin 23.8 pg (25.0-34.0); Mean Corpuscular Volume 77.9 fL (80.0-100.0); Platelet Count 262 K/uL (130-400); RDW Standard Deviation 48.4 fL (36.4-46.3); Red Blood Count 4.80 M/uL (4.20-5.40); White Blood Count 9.51 K/ul (4.8-10.8)
[2025-02-21 05:00] LABS: Alanine Aminotransferase 11.0 U/L (7-52); Albumin Globulin Ratio 1.0 (0.9-2); Albumin Level 4.1 gm/dl (3.4-5.0); Alkaline Phosphatase 104.0 U/L (34-104); Anion Gap 10.0 (3-11); Bilirubin,Total 0.7 mg/dl (0.2-1.0); Blood Urea Nitrogen 14.0 mg/dl (6-23); Calcium 10.2 mg/dl (8.6-10.3); Carbon Dioxide 28.0 mmol/L (21-32); Chloride 97.0 mmol/L (98-107); Cholesterol 178.0 mg/dl (0-200); Creatinine Clr Calc Pharmacy 57.4 ml/min; Globulin 4.0 gm/dl (2.5-4.0); Glucose 115.0 mg/dl (70-99(Fasting)); HDL Cholesterol 73.0 mg/dl; Magnesium 2.1 mg/dl (1.7-2.4); Potassium 3.3 mmol/L (3.5-5.1); Sodium 135.0 mmol/L (136-145); Total Protein 8.1 gm/dl (6.0-8.3); Triglycerides 79.0 mg/dl (0-150)
[2025-02-21] MEDS: LEVOTHYROXINE SODIUM 200 MCG TABLET PO SCH (05:46)
[2025-02-21 07:42] LABS: Hemoglobin A1C 5.9 % (4.5-5.6)
[2025-02-21] MEDS: CETIRIZINE HCL 10 MG TABLET PO SCH (08:06)
[2025-02-21] MEDS: DONEPEZIL HCL 10 MG TAB PO SCH (08:07)
[2025-02-21] MEDS: ASPIRIN 81 MG ECTAB PO SCH (08:07)
[2025-02-21] MEDS: POTASSIUM CHLORIDE CRTAB 20 MEQ TABCR PO SCH (08:08)
[2025-02-21] MEDS: ACETAMINOPHEN 325 MG TAB PO PRN (08:12)
[2025-02-21] MEDS ORDERED: CLOPIDOGREL BISULFATE 75 MG TAB PO SCH (09:00)
--- NOTE | 2025-02-21 11:05 | Magnetic Resonance Report ---
MR brain wo con HISTORY: 89 years-old Female CVA r/o acute stroke like symptoms with dementia COMPARISON: CTA head 02/20/2025, head CT 02/20/2025 TECHNIQUE: Multiplanar multisequence MRI of the brain was obtained without IV contrast FINDINGS: 1.5 cm linear focus of restricted diffusion involves the periventricular right parietal lobe, images 12 and 13 of series 3. No acute territorial infarct. Midline structures are within normal limits. Deg enerative changes of the cervical spine. No acute intracranial hemorrhage, midline shift, abnormal extra-axial collection, hydrocephalus or in tra-axial mass. No pathologic blooming artifact. Involutional changes with extensive T2/FLAIR hyperin tense foci throughout the white matter. Cerebral venous sinuses and major arterial flow voids appear patent. Aneurysmal dilation of the distal internal carotid arteries redemonstrated, right greater renae n left. Prior bilateral lens repair. Mastoid air cells and paranasal sinuses are generally clear. IMPRESSION: 1. 1.5 cm acute small infarct involves the periventricular right parietal lobe. 2. Involutional changes with advanced chronic microvascular ischemic disease. 3. Aneurysmal dilation of the distal internal carotid arteries redemonstrated, better evaluated on 's CTA of the head. ACT 112: Negative or not required by law. The above report was generated using voice recognition software. It may contain grammatical, syntax o r spelling errors. Electronically signed by: Max Smith M.D. 02/21/2025 11:02 AM
--- NOTE | 2025-02-21 11:28 | Hospitalist Progress Note ---
Date of Service February 21, 2025 Assessment & Plan (1) Hypertensive urgency: (2) Stroke-like symptoms: (3) Elevated troponin: (4) Hypokalemia: Plan 89 year woman with past medical history significant for hypothyroidism, HLD, HTN, GERD, cervical DDD, primary osteoarthritis of both knees, moderate late onset Alzheimer's dementia, depression, history of colonic polyps, history of benign ovarian tumor and anxiety who presented to the ED via EMS from [facility] in [place] for further evaluation of strokelike symptoms including headache, nausea and new left eyelid drooping. Acute CVA Hypertensive urgency Presented with left facial droop and headache Significantly hypertensive upon arrival to ED with readings in the 230s/110s. Head CT with motion degraded exam but no visible acute intracranial abnormalities. 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 Neck CTA: Plaque within the carotid bulbs bilaterally, with less than 30% diameter narrowing. Moderate severity stenosis of the distal left vertebral artery, mild stenosis of the distal right vertebral artery. MRI brain noted 1.5cm acute small infarct involves the periventricular right parietal lobe I called [facility] Singer and discussed findings with Neurosurgery, Dr Conner He agrees with Aspirin only, no plavix. 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 TTE reviewed Hypokalemia Repleted and monitor Hypercalcemia Vit D is 24.6 Elevated pTH Prolonged QTc interval 531ms on presentation Avoid QT-prolonging agents as able Continue LINOLEUM LAYER lexapro. Donepezil held for now Moderate late onset Alzheimer's dementia Continue memantine. Delirium precautions GERD - Continue PPI. Hypothyroidism - TSH WNL, continue levothyroxine. DVT Prophylaxis: Lovenox Code Status: FULL CODE PCP: Lakisha Cherry MD Updated the patient's daughter, Rich, over the phone at [phone]. She is a PCP with Dr. Rich Yeeams. I spent a total of 65 minutes coordinating, documenting and providing care for this patient excluding time spent in performance of separately billed services Admission and Anticipated Discharge Date Admission Date: February 20, 2025 Subjective Patient seen and examined Limited ROS due to cognitive impairment She is alert oriented to person, thinks she is in [place], not oriented to time She does not recall what happened that brought her to the hospital No complaints at this time Physical Exam Constitutional: no acute distress Eyes: Pupils are sluggish to light ENMT: external ear and nose normal, oropharynx normal Respiratory: normal respiratory effort, lungs clear to auscultation Cardiovascular: Rate/Rhythm: regular rate and regular rhythm Gastrointestinal (Abdomen): normal bowel sounds, soft, nontender, no hepatosplenomegaly Musculoskeletal: No pedal edema Neurologic: Pupils were sluggish to light, gaze palsy on left (limited abduction of left eye), left facial droop, left ptosis No focal weakness or sensory deficits in extremities Results & Data Results & Data Vital Signs (Past 12 Hours) Vital Signs Temp Pulse Pulse Resp BP BP Pulse Ox 02/21/25 11:03 36.7 C 65 18 194/99 H 203/96 H 96 02/21/25 09:33 70 02/21/25 07:32 36.8 C 67 18 169/78 H 97 02/21/25 05:46 156/78 H 02/21/25 04:05 36.8 C 59 L 16 212/86 H 98 02/20/25 23:52 179/73 H O2 Del Method 02/21/25 11:03 Room Air 02/21/25 09:33 02/21/25 07:32 Room Air 02/21/25 05:46 02/21/25 04:05 Room Air 02/20/25 23:52 Laboratory Results Abnormal lab results 02/20/25 02/20/25 02/20/25 Range/Units 14:20 17:30 19:11 Hgb (12.0-16.0) g/dl Hct 36.7 L (37.0-47.0) % MCV 76.9 L (80.0-100.0) fL MCH (25.0-34.0) pg MCHC (32.0-36.0) g/dL RDW Std Deviation 48.0 H (36.4-46.3) fL RDW Coeff of Linda 17.3 H (11.5-14.5) % MPV 9.0 L (9.4-12.4) fL Neut # (Auto) 7.15 H (1.40-6.50) K/uL [place] # (Auto) 1.35 H (0.11-0.59) K/uL Sodium 133 L (136-145) mmol/L Potassium 2.8 L (3.5-5.1) mmol/L Chloride 93 L (98-107) mmol/L BUN/Creatinine Ratio 26.5 H (10-20) Glucose 136 H (70-99(Fasting)) mg/dl Hemoglobin A1c (4.5-5.6) % Calcium 11.0 H (8.6-10.3) mg/dl Alkaline Phosphatase 115 H (34-104) U/L Troponin I High Sens 117.2 H* 118.8 H* (0-14) pg/ml 25-OH Vitamin D Total 24.6 L (30-100) ng/ml PTH Intact 120.1 H (12.0-88.0) pg/ml Urine Protein (Negative) Urine Glucose (UA) (Negative) 02/20/25 02/20/25 02/21/25 Range/Units 23:00 Unknown 04:28 Hgb 11.4 L (12.0-16.0) g/dl Hct (37.0-47.0) % MCV 77.9 L (80.0-100.0) fL MCH 23.8 L (25.0-34.0) pg MCHC 30.5 L (32.0-36.0) g/dL RDW Std Deviation 48.4 H (36.4-46.3) fL RDW Coeff of Linda 17.4 H (11.5-14.5) % MPV 9.0 L (9.4-12.4) fL Neut # (Auto) (1.40-6.50) K/uL [place] # (Auto) (0.11-0.59) K/uL Sodium 135 L (136-145) mmol/L Potassium 3.3 L (3.5-5.1) mmol/L Chloride 97 L (98-107) mmol/L BUN/Creatinine Ratio 22.2 H (10-20) Glucose 115 H (70-99(Fasting)) mg/dl Hemoglobin A1c 5.9 H (4.5-5.6) % Calcium (8.6-10.3) mg/dl Alkaline Phosphatase (34-104) U/L Troponin I High Sens 124.6 H* 127.6 H* (0-14) pg/ml 25-OH Vitamin D Total (30-100) ng/ml PTH Intact (12.0-88.0) pg/ml Urine Protein 3+ H (Negative) Urine Glucose (UA) Trace H (Negative) 02/21/25 Range/Units 10:57 Hgb (12.0-16.0) g/dl Hct (37.0-47.0) % MCV (80.0-100.0) fL MCH (25.0-34.0) pg MCHC (32.0-36.0) g/dL RDW Std Deviation (36.4-46.3) fL RDW Coeff of Linda (11.5-14.5) % MPV (9.4-12.4) fL Neut # (Auto) (1.40-6.50) K/uL [place] # (Auto) (0.11-0.59) K/uL Sodium (136-145) mmol/L Potassium (3.5-5.1) mmol/L Chloride (98-107) mmol/L BUN/Creatinine Ratio (10-20) Glucose (70-99(Fasting)) mg/dl Hemoglobin A1c (4.5-5.6) % Calcium (8.6-10.3) mg/dl Alkaline Phosphatase (34-104) U/L Troponin I High Sens 122.4 H* (0-14) pg/ml 25-OH Vitamin D Total (30-100) ng/ml PTH Intact (12.0-88.0) pg/ml Urine Protein (Negative) Urine Glucose (UA) (Negative)
--- NOTE | 2025-02-21 12:43 | XCELERA ---
[id number]
--- NOTE | 2025-02-21 14:02 | Neurology Progress Note ---
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 I did discuss with the family these are moderate to high bleed risk. The patient was advised to present immediately to the Emergency Department should she develop severe onset headache, unilateral weakness, numbness, paresthesias, visual deficits, language deficits. 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 Unfortunately, patient was not a candidate for IV thrombolytics given presentation outside of time windows and large bilateral ICA aneurysms. TTE 02/21/2025 LVEF 55-60%, normal left atrium, no atrial septal defect, no intra-atrial shunt, no thrombus mentioned. -continue aspirin 81 mg daily as above - continue atorvastatin 40 mg daily -routine labs lipid panel -goal LDL <70 - neuro checks every 4 hours while inpatient - DVT prophylaxis with SCDs and enoxaparin -blood pressure parameters SBP less than 160 I discussed my recommendations with Dr. Simi Zarate. I updated the patient's daughter, a PCP, with the recommendations as above. Thank you for this consult. Please call with questions. Subjective Telehealth Information After establishing a telemedicine visit, patient was verified with two unique identifiers. Patient (or authorized healthcare bilingual call center representative) acknowledged consent and understanding and gave permission to continue telemedicine session. I saw and examined the patient at bedside today. No family is present for the encounter. Patient has persistent left facial droop. We reviewed the results of her MRI which showed small right parietal infarct which could explain her left facial droop. Reviewed results of TTE LVEF 55-60%, normal left atrium, no atrial septal defect, no interatrial shunt, no thrombus. Primary team discussed with Neurosurgery who recommends aspirin only due to large aneurysms, nonsurgical. Maintain blood pressure less than 160s, not permissive per Neurosurgery recommendation which I agree with. Review of Systems ROS reviewed and negative except as above. Physical Exam General Constitutional: Appearance normally developed Head and face: normocephalic and atraumatic Eyes: left eye ptosis, no anisocoria, and no dysconjugate gaze Respiratory: normal effort Cardiovascular: regular rhythm and regular rate Abdomen: non distended Skin: no rashes, lesions, or ulcers noted Psychiatric: normal judgement and insight, normal mood, and normal affect NEUROLOGIC EXAMINATION: Mental Status: alert, oriented to person and state, but not month or year, poor recent memory, poor remote memory, normal attention span, hard of hearing, poor concentration, nonfluent description of the stroke picture, decreased fund of knowledge. Able to name, read, and repeat Cranial Nerves: CN 2 - per report, pupils round, equal, reactive to light CN 3, 4, 6 - bidirectional end gaze palsy CN 5 - facial sensation intact CN 7 - left facial droop CN 8 - intact hearing CN 9, 10 - not assessed CN 11 - good shoulder shrug CN 12 - not assessed MOTOR: Strength was at least antigravity throughout, Pronator drift was absent and There were no abnormal movements SENSATION: intact and symmetric to light touch GAIT: not assessed COORDINATION: no ataxia with finger to nose testing and heel to del angel testing REFLEXES: cannot assess over telemedicine NIH Stroke Scale: 1a. Level of Consciousness: alert = 0 1b. LOC Questions: (month, age): answered one question incorrect = 1 1c. LOC Commands (open and close eyes, make fist and let go using non-paretic hand): obeys both correctly = 0 2. Best Gaze (eyes open and patient follows examiner's finger or face): bidirectional end gaze palsy = 1 3. Visual (visual threat or finger counting in each quadrant): no loss = 0 4. Facial Palsy (show teeth, raise eye brows and squeeze eyes shut, or grimace symmetry in a comatose patient): left facial droop = 1 5a. Motor Arm (extend arm (palms down) to 90 degrees and score drift/movement (10 seconds) - Left: no drift = 0 5b. Motor Arm: (extend arm (palms down) to 90 degrees and score drift/movement (10 seconds) - Right: no drift = 0 6a. Motor Leg (elevate leg 30 degrees and score drift/ movement (5 seconds) - Left: no drift = 0 6b. Motor Leg (elevate leg 30 degrees and score drift/ movement (5 seconds) - Right: no drift = 0 7. Limb Ataxia (finger to nose, heel down del angel): absent = 0 8. Sensory (pin prick to face, arm, trunk and leg, compare side to side): normal = 0 9. Best Language: mild aphasia = 1 10. Dysarthria (evaluate speech clarity by patient repeating listed words): mild dysarthria = 1 11. Extinction and Inattention: no neglect = 0 Total: 5 Results & Data Vital Signs (Past 12 Hours) Vital Signs Temp Pulse Pulse Resp BP BP Pulse Ox 02/21/25 13:46 80 166/79 H 02/21/25 12:37 82 130/71 02/21/25 11:40 183/82 H 181/92 H 02/21/25 11:03 36.7 C 65 18 194/99 H 203/96 H 96 02/21/25 09:33 70 02/21/25 07:32 36.8 C 67 18 169/78 H 97 02/21/25 05:46 156/78 H 02/21/25 04:05 36.8 C 59 L 16 212/86 H 98 O2 Del Method 02/21/25 13:46 02/21/25 12:37 02/21/25 11:40 02/21/25 11:03 Room Air 02/21/25 09:33 02/21/25 07:32 Room Air 02/21/25 05:46 02/21/25 04:05 Room Air Laboratory Results 02/21/25 02/21/25 02/21/25 10:57 04:28 04:28 WBC 9.51 RBC 4.80 Hgb 11.4 L Hct 37.4 MCV 77.9 L MCH 23.8 L MCHC 30.5 L RDW Std Deviation 48.4 H RDW Coeff of Linda 17.4 H Plt Count 262 MPV 9.0 L Immature Gran % (Auto) Neut % (Auto) Lymph % (Auto) Perkins % (Auto) Eos % (Auto) Baso % (Auto) Neut # (Auto) Lymph # (Auto) Perkins # (Auto) Eos # (Auto) Baso # (Auto) Immature Gran # (Auto) Sodium 135 L Potassium 3.3 L Chloride 97 L Carbon Dioxide 28 Anion Gap 10 BUN 14 Creatinine 0.63 Est Cr Clr Drug Dosing 57.4 eGFR 85.27 BUN/Creatinine Ratio 22.2 H Glucose 115 H Estimat Average Glucose 123 Hemoglobin A1c 5.9 H Calcium 10.2 Ionized Calcium Magnesium 2.1 Total Bilirubin 0.7 Direct Bilirubin AST 19 ALT 11 Alkaline Phosphatase 104 Troponin I High Sens 122.4 H* Cancelled 127.6 H* Total Protein 8.1 Albumin 4.1 Globulin 4.0 Albumin/Globulin Ratio 1.0 Triglycerides 79 Cholesterol 178 LDL Cholesterol, Calc 89 VLDL Cholesterol, Calc 16 HDL Cholesterol 73 Cholesterol/HDL Ratio 2.4 25-OH Vitamin D Total TSH PTH Intact Urine Color Urine Appearance Urine pH Ur Specific [place] Urine Protein Urine Glucose (UA) Urine Ketones Urine Blood Urine Nitrite Urine Bilirubin Urine Urobilinogen Ur Leukocyte Esterase Urine WBC (Auto) Urine RBC (Auto) U Hyaline Cast (Auto) U Epithel Cells (Auto) Urine Bacteria (Auto) Urine Comment Lyme Disease Screen 02/20/25 02/20/25 02/20/25 Unknown 23:00 19:11 WBC RBC Hgb Hct MCV MCH MCHC RDW Std Deviation RDW Coeff of Linda Plt Count MPV Immature Gran % (Auto) Neut % (Auto) Lymph % (Auto) Perkins % (Auto) Eos % (Auto) Baso % (Auto) Neut # (Auto) Lymph # (Auto) Perkins # (Auto) Eos # (Auto) Baso # (Auto) Immature Gran # (Auto) Sodium Potassium Chloride Carbon Dioxide Anion Gap BUN Creatinine Est Cr Clr Drug Dosing eGFR BUN/Creatinine Ratio Glucose Estimat Average Glucose Hemoglobin A1c Calcium Ionized Calcium 1.22 Magnesium Total Bilirubin Direct Bilirubin AST ALT Alkaline Phosphatase Troponin I High Sens 124.6 H* Total Protein Albumin Globulin Albumin/Globulin Ratio Triglycerides Cholesterol LDL Cholesterol, Calc VLDL Cholesterol, Calc HDL Cholesterol Cholesterol/HDL Ratio 25-OH Vitamin D Total TSH PTH Intact 120.1 H Urine Color Yellow Urine Appearance Clear Urine pH 7.0 Ur Specific [place] 1.013 Urine Protein 3+ H Urine Glucose (UA) Trace H Urine Ketones Negative Urine Blood Negative Urine Nitrite Negative Urine Bilirubin Negative Urine Urobilinogen Negative Ur Leukocyte Esterase Negative Urine WBC (Auto) 0-5 Urine RBC (Auto) 0-2 U Hyaline Cast (Auto) 0-2 U Epithel Cells (Auto) 0-2 Urine Bacteria (Auto) None Seen Urine Comment Lyme Disease Screen 02/20/25 02/20/25 17:30 14:20 WBC 10.33 RBC 4.77 Hgb 12.0 Hct 36.7 L MCV 76.9 L MCH 25.2 MCHC 32.7 RDW Std Deviation 48.0 H RDW Coeff of Linda 17.3 H Plt Count 280 MPV 9.0 L Immature Gran % (Auto) 1.4 Neut % (Auto) 69.1 Lymph % (Auto) 16.1 Perkins % (Auto) 13.1 Eos % (Auto) 0.2 Baso % (Auto) 0.1 Neut # (Auto) 7.15 H Lymph # (Auto) 1.66 Perkins # (Auto) 1.35 H Eos # (Auto) 0.02 Baso # (Auto) 0.01 Immature Gran # (Auto) 0.14 Sodium 133 L Potassium 2.8 L Chloride 93 L Carbon Dioxide 29 Anion Gap 11 BUN 18 Creatinine 0.68 Est Cr Clr Drug Dosing 56.4 eGFR 84.24 BUN/Creatinine Ratio 26.5 H Glucose 136 H Estimat Average Glucose Hemoglobin A1c Calcium 11.0 H Ionized Calcium Magnesium 2.0 Total Bilirubin 0.7 Direct Bilirubin 0.1 AST 19 ALT 11 Alkaline Phosphatase 115 H Troponin I High Sens 118.8 H* 117.2 H* Total Protein 8.3 Albumin 4.5 Globulin Albumin/Globulin Ratio Triglycerides Cholesterol LDL Cholesterol, Calc VLDL Cholesterol, Calc HDL Cholesterol Cholesterol/HDL Ratio 25-OH Vitamin D Total 24.6 L TSH 3.998 PTH Intact Urine Color Urine Appearance Urine pH Ur Specific [place] Urine Protein Urine Glucose (UA) Urine Ketones Urine Blood Urine Nitrite Urine Bilirubin Urine Urobilinogen Ur Leukocyte Esterase Urine WBC (Auto) Urine RBC (Auto) U Hyaline Cast (Auto) U Epithel Cells (Auto) Urine Bacteria (Auto) Urine Comment Lyme Disease Screen Negative Diagnostic Findings Head CT 02/20/25 14:41 IMPRESSION: 1. Motion degraded exam without acute intracranial abnormality. 2. 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 These findings could be further characterized with CTA. Electronically signed by: Max Smith M.D. 02/20/2025 3:24 PM Head CTA 02/20/25 15:34 Impression: 1. 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 No definite stenosis of the intracranial arteries 4. Sphenoid sinusitis Electronically signed by Kristopher Witt 02-20-2025 6:06 PM Neck CTA 02/20/25 15:34 Impression: 1. Atherosclerotic plaque in the carotid bulbs bilaterally, without stenosis 2. 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 1.5 cm acute small infarct involves the periventricular right parietal lobe. 2. Involutional changes with advanced chronic microvascular ischemic disease. 3. Aneurysmal dilation of the distal internal carotid arteries redemonstrated, better evaluated on yesterday's CTA of the head. Electronically signed by: Max Smith M.D. 02/21/2025 11:02 AM Medications Administered Home Medications Medication Instructions Recorded Confirmed Last Taken amlodipine 5 mg tablet 5 mg PO QAM 11/21/21 02/20/25 01/09/22 escitalopram oxalate 10 mg tablet 10 mg PO QAM 11/21/21 02/20/25 01/10/22 lisinopril 20 mg tablet 20 mg PO QAM 11/21/21 02/20/25 01/10/22 omeprazole 20 mg tablet,delayed 20 mg PO BID 11/21/21 02/20/25 01/10/22 release simvastatin 20 mg tablet 20 mg PO HS 11/21/21 02/20/25 01/09/22 acetaminophen 500 mg tablet 500 mg PO TID 02/20/25 02/20/25 Unknown cetirizine 5 mg tablet 5 mg PO QAM 02/20/25 02/20/25 Unknown cholecalciferol (vitamin D3) 125 125 mcg PO DAILY 02/20/25 02/20/25 Unknown mcg (5,000 unit) capsule donepezil 10 mg tablet 10 mg PO QAM 02/20/25 02/20/25 Unknown levothyroxine 200 mcg tablet 200 mcg PO DAILYBB 02/20/25 02/20/25 Unknown memantine 10 mg tablet 10 mg PO AMHS 02/20/25 02/20/25 Unknown Active Medications Generic Name Dose Route Start Last Admin Trade Name Freq PRN Reason Stop Dose Admin Acetaminophen 650 mg 02/20/25 18:34 02/21/25 08:12 Acetaminophen 325 Mg Tab PO 03/22/25 18:33 650 mg Q4H PRN Administration Pain or Fever Aspirin 81 mg 02/21/25 09:00 02/21/25 08:07 Aspirin 81 Mg Ectab PO 03/23/25 08:59 81 mg QAM ASIYA Administration Atorvastatin Calcium 40 mg 02/20/25 18:50 02/21/25 08:07 Atorvastatin 40 Mg Tab PO 03/22/25 18:49 40 mg QAM ASIYA Administration Cetirizine HCl 5 mg 02/21/25 09:00 02/21/25 08:06 Cetirizine Hcl 10 Mg Tablet PO 03/23/25 08:59 5 mg QAM ASIYA Administration Donepezil HCl 10 mg 02/21/25 09:00 02/21/25 08:07 Donepezil Hcl 10 Mg Tab PO 03/23/25 08:59 10 mg QAM ASIYA Administration Hydralazine HCl 5 mg 02/20/25 18:32 02/21/25 11:35 Hydralazine Hcl 20 Mg/Ml Vial IV 03/22/25 18:31 5 mg Q4H PRN Administration SBP>180 Levothyroxine Sodium 200 mcg 02/21/25 06:30 02/21/25 05:46 Levothyroxine Sodium 200 Mcg Tablet PO 03/23/25 06:29 200 mcg DAILYBB ASIYA Administration Lisinopril 20 mg 02/21/25 09:00 02/21/25 08:06 Lisinopril 20 Mg Tab PO 03/23/25 08:59 20 mg QAM ASIYA Administration Memantine 10 mg 02/20/25 21:00 02/21/25 08:07 Memantine Hcl 10 Mg Tab PO 03/22/25 20:59 10 mg AMHS ASIYA Administration Pantoprazole Sodium 40 mg 02/20/25 21:00 02/21/25 08:07 Pantoprazole 40 Mg Tab PO 03/22/25 20:59 40 mg BID ASIYA Administration
--- NOTE | 2025-02-21 21:53 | Electrocardiogram Report ---
Test Reason : Blood Pressure : */* mmHG Vent. Rate : 77 BPM Atrial Rate : 77 BPM P-R Int : 192 ms QRS Dur : 110 ms QT Int : 454 ms P-R-T Axes : 29 -7 203 degrees QTcB Int : 513 ms Sinus rhythm with occasional Premature ventricular complexes Left ventricular hypertrophy with repolarization abnormality ( R in aVL , Sokolow-Taylor , [place] prod uct ) Inferior infarct (cited on or before 21-Nov-2021) Prolonged QT Abnormal ECG When compared with ECG of 03-Feb-2022 10:25, Premature ventricular complexes are now Present QRS duration has increased Confirmed by Rashi Rey ([id number]) on 02/21/2025 9:52:53 PM Referred By: REFERRED SELF Confirmed By: Rashi Rey
--- NOTE | 2025-02-21 21:55 | Electrocardiogram Report ---
Test Reason : Blood Pressure : */* mmHG Vent. Rate : 72 BPM Atrial Rate : 72 BPM P-R Int : 178 ms QRS Dur : 104 ms QT Int : 450 ms P-R-T Axes : 50 10 8 degrees QTcB Int : 492 ms Normal sinus rhythm Inferior infarct (cited on or before 21-Nov-2021) Prolonged QT Abnormal ECG When compared with ECG of 20-Feb-2025 14:48, Premature ventricular complexes are no longer Present Nonspecific T wave abnormality has replaced inverted T waves in Lateral leads Confirmed by Rashi Rey ([id number]) on 02/21/2025 9:54:59 PM Referred By: REFERRED SELF Confirmed By: Rashi Rey
[2025-02-22 07:17] LABS: Hematocrit (blood only) 34.9 % (37.0-47.0); Hemoglobin 10.9 g/dl (12.0-16.0); Mean Corpuscular Hemoglobin 24.1 pg (25.0-34.0); Mean Corpuscular Volume 77.2 fL (80.0-100.0); Platelet Count 307 K/uL (130-400); RDW Standard Deviation 48.8 fL (36.4-46.3); Red Blood Count 4.52 M/uL (4.20-5.40); White Blood Count 11.16 K/ul (4.8-10.8)
[2025-02-22 07:44] LABS: Anion Gap 10.0 (3-11); Blood Urea Nitrogen 30.0 mg/dl (6-23); Calcium 10.0 mg/dl (8.6-10.3); Carbon Dioxide 26.0 mmol/L (21-32); Chloride 95.0 mmol/L (98-107); Creatinine Clr Calc Pharmacy 41.4 ml/min; Glucose 96.0 mg/dl (70-99(Fasting)); Potassium 3.6 mmol/L (3.5-5.1); Sodium 131.0 mmol/L (136-145)
[2025-02-22] MEDS: ESCITALOPRAM OXALATE 10 MG TAB PO SCH (08:03)
[2025-02-22] MEDS: ENOXAPARIN INJ 40 MG/0.4 ML SYR SQ SCH (08:03)
--- NOTE | 2025-02-22 10:29 | Hospitalist Progress Note ---
Date of Service February 22, 2025 Assessment & Plan (1) Hypertensive urgency: (2) Stroke-like symptoms: (3) Elevated troponin: (4) Hypokalemia: Plan 89 year woman with past medical history significant for hypothyroidism, HLD, HTN, GERD, cervical DDD, primary osteoarthritis of both knees, moderate late onset Alzheimer's dementia, depression, history of colonic polyps, history of benign ovarian tumor and anxiety who presented to the ED via EMS from [facility] in [place] for further evaluation of strokelike symptoms including headache, nausea and new left eyelid drooping. Acute CVA Hypertensive urgency Presented with left facial droop and headache Significantly hypertensive upon arrival to ED with readings in the 230s/110s. Head CT with motion degraded exam but no visible acute intracranial abnormalities. 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 Neck CTA: Plaque within the carotid bulbs bilaterally, with less than 30% diameter narrowing. Moderate severity stenosis of the distal left vertebral artery, mild stenosis of the distal right vertebral artery. MRI brain noted 1.5cm acute small infarct involves the periventricular right parietal lobe On 02/21/25, I called [facility] and discussed findings with Neurosurgery, Dr Conner He agrees with Aspirin only, no plavix. 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 Hence Prediabetes range PT/OT/BANKRUPTCY LEGAL ASSISTANT eval noted Elevated troponin Likely demand ischemia No reported cardiopulmonary complaints. TTE reviewed Hypokalemia Repleted and monitor Hypercalcemia - resolved Vit D is 24.6 Elevated pTH Prolonged QTc interval 531ms on presentation Avoid QT-prolonging agents as able Continue WEALTH MANAGEMENT MANAGER lexapro. Donepezil held for now Moderate late onset Alzheimer's dementia Continue memantine. Delirium precautions GERD - Continue PPI. Hypothyroidism - TSH WNL, continue levothyroxine. DVT Prophylaxis: Lovenox Code Status: FULL CODE PCP: Lakisha Cherry MD I spent a total of 50 minutes coordinating, documenting and providing care for this patient excluding time spent in performance of separately billed services Admission and Anticipated Discharge Date Admission Date: February 20, 2025 Subjective Patient seen and examined Reports feeling better today Reports some blurry vision on left eye Otherwise, no other complaints Physical Exam Constitutional: no acute distress Eyes: +Left ptosis ENMT: external ear and nose normal, oropharynx normal Respiratory: normal respiratory effort, lungs clear to auscultation Cardiovascular: Rate/Rhythm: regular rate and regular rhythm Gastrointestinal (Abdomen): normal bowel sounds, soft, nontender, no hepatosplenomegaly Musculoskeletal: No pedal edema Neurologic: +left eye lateral ophthalmoplegia. +left eye ptosis Power and sensation are equal on both UE/LE Alert and oriented to person and place Results & Data Results & Data Vital Signs (Past 12 Hours) Vital Signs Temp Pulse Pulse Resp BP BP Pulse Ox 02/22/25 09:37 68 02/22/25 07:04 36.6 C 83 18 130/77 96 02/22/25 03:06 36.5 C 79 16 114/74 96 02/21/25 23:11 36.5 C 73 16 125/75 93 O2 Del Method 02/22/25 09:37 02/22/25 07:04 Room Air 02/22/25 03:06 Room Air 02/21/25 23:11 Room Air Laboratory Results Abnormal lab results 02/22/25 Range/Units 06:23 WBC 11.16 H (4.8-10.8) K/ul Hgb 10.9 L (12.0-16.0) g/dl Hct 34.9 L (37.0-47.0) % MCV 77.2 L (80.0-100.0) fL MCH 24.1 L (25.0-34.0) pg MCHC 31.2 L (32.0-36.0) g/dL RDW Std Deviation 48.8 H (36.4-46.3) fL RDW Coeff of Linda 17.5 H (11.5-14.5) % Sodium 131 L (136-145) mmol/L Chloride 95 L (98-107) mmol/L BUN 30 H (6-23) mg/dl BUN/Creatinine Ratio 34.1 H (10-20)
[2025-02-23 06:33] LABS: Hematocrit (blood only) 35.6 % (37.0-47.0); Hemoglobin 10.8 g/dl (12.0-16.0); Mean Corpuscular Hemoglobin 23.8 pg (25.0-34.0); Mean Corpuscular Volume 78.4 fL (80.0-100.0); Platelet Count 283 K/uL (130-400); RDW Standard Deviation 48.7 fL (36.4-46.3); Red Blood Count 4.54 M/uL (4.20-5.40); White Blood Count 10.62 K/ul (4.8-10.8)
[2025-02-23 06:53] LABS: Anion Gap 11.0 (3-11); Blood Urea Nitrogen 31.0 mg/dl (6-23); Calcium 9.8 mg/dl (8.6-10.3); Carbon Dioxide 26.0 mmol/L (21-32); Chloride 94.0 mmol/L (98-107); Creatinine Clr Calc Pharmacy 37.5 ml/min; Glucose 89.0 mg/dl (70-99(Fasting)); Potassium 3.4 mmol/L (3.5-5.1); Sodium 131.0 mmol/L (136-145)
[2025-02-23 07:49] VITALS: RESP 18
[2025-02-23] MEDS: POTASSIUM CHLORIDE CRTAB 20 MEQ TABCR PO STA (08:16)
[2025-02-23] MEDS ORDERED: STROKE PATIENT DISCHARGE STA (10:57)
--- NOTE | 2025-02-23 10:58 | Discharge Summary ---
Date of Service February 23, 2025 Admission HPI Per Admitting Provider Patient is an 89-year-old female with past medical history significant for hypothyroidism, HLD, HTN, GERD, cervical DDD, primary osteoarthritis of both knees, moderate late onset Alzheimer's dementia, depression, history of colonic polyps, history of benign ovarian tumor and anxiety who presented to the ED via EMS from [facility] in [place] for further evaluation of strokelike symptoms including headache, nausea and new left eyelid drooping. History obtained from the patient, multiple family members at bedside, discussion with ED provider and associated chart review. Patient seen at bedside in the ED with Dr. Acevedo. Has been experiencing intermittent headaches and nausea for past 3 or so days. Also with development of new left eyelid droop within the last week per [facility] staff. Reportedly with history of migraines but family mentions she has not had a migraine episode in several years since going through menopause. Has also been experiencing decreased oral intake since beginning of the week with concomitant lethargy per [facility] staff. Has also reportedly been feeling nauseated but no bouts of vomiting. Unclear if patient is having any diarrhea. No prior history of CVA or TIA per chart review. Significantly hypertensive with pressures in the 230s/110s upon arrival to ED. Improved to 159/94 s/p 20mg IV labetalol at the time of our evaluation shortly before 6PM. 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 Head and neck CTA imaging pending. Admission Exam Per Admitting Provider Pt currently sitting up in bed in [facility], surrounding by family and asking if she can be discharged. Reports feeling well right now. Only confirms left eye droopiness that she does not find disturbing. No change in vision. Smile is symmetric, can puff cheeks - symmetric, can raise eyebrows - symmetric. No weakness in her extremities. lungs clear/ decreased breath sounds, no wheezing. Heart sounds regular. Abdomen soft, nontender. Principal Diagnosis Acute stroke Aneurysm Hypertensive emergency Discharge Exam Constitutional no acute distress Eyes Left ptosis ENMT external ear and nose normal, oropharynx normal Respiratory normal respiratory effort, lungs clear to auscultation Cardiovascular Rate/Rhythm: regular rate and regular rhythm Gastrointestinal (Abdomen) normal bowel sounds, soft, nontender, no hepatosplenomegaly Musculoskeletal No pedal edema Neurologic PERRL +Left eye lateral gaze palsy Alert and oriented to person, place, month and year Equal power in all extremities Discharge Data Allergies Allergy/AdvReac Type Severity Reaction Status Date / Time alendronate sodium Allergy Severe throat Verified 02/20/25 17:54 [From Fosamax] swelling sulfamethoxazole Allergy Mild Rash Verified 02/20/25 17:54 [From Bactrim] trimethoprim [From Bactrim] Allergy Mild Rash Verified 02/20/25 17:54 Consultations 02/20/25 16:39 ED Decision to Admit Stat 02/20/25 17:02 Consult Neurology Routine Ordered Studies 02/20/25 14:41 CT head/brain wo con Stat 02/20/25 15:34 CT angio head w con Stat CT angio neck with con Stat 02/21/25 08:58 MR brain wo con Routine Hospital Course (1) Hypertensive urgency: (2) Stroke-like symptoms: (3) Elevated troponin: (4) Hypokalemia: Plan 89 year woman with past medical history significant for hypothyroidism, HLD, HTN, GERD, cervical DDD, primary osteoarthritis of both knees, moderate late onset Alzheimer's dementia, depression, history of colonic polyps, history of benign ovarian tumor and anxiety who presented to the ED via EMS from [facility] for further evaluation of strokelike symptoms including headache, nausea and new left eyelid drooping. Acute CVA Hypertensive urgency/emergency Presented with left facial droop and headache Significantly hypertensive upon arrival to ED with readings in the 230s/110s. Head CT with motion degraded exam but no visible acute intracranial abnormalities. 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 Neck CTA: Plaque within the carotid bulbs bilaterally, with less than 30% diameter narrowing. Moderate severity stenosis of the distal left vertebral artery, mild stenosis of the distal right vertebral artery. MRI brain noted 1.5cm acute small infarct involves the periventricular right parietal lobe On 02/21/25, I called [facility] and discussed findings with Neurosurgery, Dr Conner He agreed with Aspirin only, no plavix. He recommends no permissive HTN and keeping BP <160 and patient can follow up with them outpatient TTE noted EF 55-60, Grade I, mild to mod AR, mild MR, mild MR, no ASD/shunt HbA1c 5.9. 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 BP is normalized PCP to arrange zio patch testing Patient to follow up with PCP, Neurology and Neurosurgery Elevated troponin Likely demand ischemia No reported cardiopulmonary complaints. Hypokalemia Repleted PCP to monitor Hypercalcemia - resolved Prolonged QTc interval 531ms on presentation Avoid QT-prolonging agents as able Continue [employer]ISE [employer]ERK lexapro. Donepezil stopped for now Moderate late onset Alzheimer's dementia Continue memantine. Delirium precautions Code status was changed to DNR on 02/22/25. Patient and Daughter completed POLST form Called daughter Yuriy. Discussed findings, recommendations and med changes Script given for PT at [facility] Total Time Total Time Spent Total Time Spent (In Minutes): 50 Total Time Includes: Examination of the Patient, Discharge Planning, Medication Reconciliation and Other Discharge Plan Discharge Items Patient Disposition: Personal [facility] Reason For Visit: Left facial droop Discharge Diagnosis: Acute stroke Elevated blood pressure Aneurysm Condition on Discharge: Fair Activity: As commented below Activity Comment: As recommended by PT/OT Non-emergency contact: Primary Care Provider and Neurologist Call non-emergency contact if: you have any medication questions Follow-up/Referrals: Lakisha Cherry MD [Primary Care Provider] - Diet: Heart Healthy Addtl Attending Provider Instructions: Mrs Yan You were hospitalized and managed for the above listed diagnoses. You were started on aspirin 81mg daily and your simvastatin changed to atorvastatin for stroke management. Your amlodipine was increased to 10mg daily for better blood pressure control. Please have your Blood pressure checked twice a day and keep a log for your Primary Doctor. Your Primary Doctor should arrange zio patch testing. Please ensure follow up with your Primary Doctor, Neurology and Neurosurgery. It was a pleasure taking care of you Pending Studies at Discharge: No Stand-Alone Forms: My [employer], Smoking Cessation, Medications to Prevent Stroke Skilled Items Patient informed of condition?: Yes DNR: Yes Discharge Level of Care: Other Communicable Disease: No Discharge Prognosis: Stable Lines: None Urinary Catheter: No Medications and DC Order Prescriptions: New atorvastatin 40 mg Tablet 40 mg PO QAM 30 Days Qty: 30 0RF aspirin 81 mg Tablet,Delayed Release (/Ec) 81 mg PO QAM 30 Days Qty: 30 0RF Continued lisinopril 20 mg Tablet 20 mg PO QAM escitalopram oxalate 10 mg Tablet 10 mg PO QAM omeprazole 20 mg Tablet,Delayed Release (Dr/Ec) 20 mg PO BID Rx Instructions: 02/20/25 TAKE FIRST DOSE ONE HOUR BEFORE THE FIRST MEAL OF THE DAY. acetaminophen 500 mg Tablet 500 mg PO TID cholecalciferol (vitamin D3) 125 mcg (5,000 unit) Capsule 125 mcg PO DAILY cetirizine 5 mg Tablet 5 mg PO QAM levothyroxine 200 mcg tablet 200 mcg PO DAILYBB memantine 10 mg tablet 10 mg PO AMHS Changed amlodipine 5 mg Tablet 10 mg PO QAM Qty: 60 0RF Discontinued simvastatin 20 mg Tablet 20 mg PO HS donepezil 10 mg tablet 10 mg PO QAM Discharge Orders: Discharge Order (Routine); Ordered 02/23/25 Ordered By: Simi Zarate Admission Data Admit Date/Time: 02/20/25 17:01 Attending Provider: Simi Zarate I. Admit Provider: Artem Acevedo Primary Care Provider: Lakisha Cherry Other Providers: So Diaz Andrea F. Other Interventions: Discharge Summary Assessment (RN) Last Done: 02/23/25 11:52
[2025-02-23 11:40] VITALS: PULSE 82; TEMP 97.9; O2SAT 97
[2025-02-23 11:53] VITALS: BP 108/62
[2025-02-23] MEDS: INFLUENZA VACC TS2025-26(65y+)/PF (IIV3) 0.5mL Syr IM ONE (12:30)
== END 2025-02-23 14:01 | disposition home health service (06) | DRG 65 ==
LOC: ED 14:02 → 2S 17:01 → SUATTDRO 17:01 → 2S 17:58